=== PATIENT | female | born 1950 | race Caucasian/White ===

== ENCOUNTER 2017-08-16 07:11 | Outpatient (CLI) | payer MEDICARE, OTHER ==
[2017-08-16 11:18] LABS: BASOPHILS % (AUTO) 0.9 %; EOSINOPHILS # (AUTO) 0.1 10^3/uL (0.0-0.7); EOSINOPHILS % (AUTO) 2.5 %; HCT - HEMATOCRIT 40.7 % (37.0-47.0); HGB - HEMOGLOBIN 13.4 g/dL (12.0-16.0); LYMPHOCYTES # (AUTO) 1.7 10^3/uL (1.5-3.5); LYMPHOCYTES % (AUTO) 32.2 %; MEAN CORPUSCULAR VOLUME 93.9 fL (81.0-99.0); MEAN PLATELET VOLUME 9.3 fL (7.9-10.8); MONOCYTES # (AUTO) 0.6 10^3/uL (0.0-1.0); MONOCYTES % (AUTO) 10.5 %; NEUTROPHILS # (AUTO) 2.9 10^3/uL (1.5-6.6); NEUTROPHILS % (AUTO) 53.9 %; NUCLEATED RED BLOOD CELLS AUTO 0.1 /100WBC; RED BLOOD COUNT 4.34 10^6/uL (4.20-5.40); RED CELL DISTRIBUTION WIDTH 13.7 % (12.0-15.0); UNCORRECTED WHITE BLOOD COUNT 5.4 x10^3/uL; WHITE BLOOD COUNT 5.4 x10^3/uL (4.8-10.8)
[2017-08-16 11:42] LABS: ALBUMIN/GLOBULIN RATIO 1.2 (1.0-2.2); BILIRUBIN,TOTAL 0.6 mg/dL (0.2-1.0); BUN - BLOOD UREA NITROGEN 23 mg/dL (6-20); CALCIUM 9.3 mg/dL (8.5-10.3); CARBON DIOXIDE - CO2 27 mmol/L (21-32); CHLORIDE 100 mmol/L (101-111); CHOLESTEROL 251 mg/dL; CREATININE 1.1 mg/dL (0.4-1.0); GFR - MDRD 49 (>89); GLUCOSE 88 mg/dL (70-100); HDL CHOLESTEROL 84 mg/dL; LDL/HDL RATIO 1.8 (<4.4); POTASSIUM 3.7 mmol/L (3.5-5.0); SODIUM 136 mmol/L (135-145); TOTAL PROTEIN 7.6 g/dL (6.7-8.2); TRIGLYCERIDES 72 mg/dL; VLDL CHOLESTEROL 14 mg/dL
== END 2017-08-16 07:12 | disposition home or self-care (01) ==
LOC: LAB.F 07:11
PROVIDERS: ATTEND Physician Assistant Medical
DX: M81.0 Age-related osteoporosis without current pathological fracture (principal); E78.2 Mixed hyperlipidemia; Z79.899 Other long term (current) drug therapy; Z11.59 Encounter for screening for other viral diseases; N18.9 Chronic kidney disease, unspecified; E04.2 Nontoxic multinodular goiter
CPT/HCPCS: 36415; 80053; 80061; 82306; 84443; 85025; 86803

== ENCOUNTER 2017-09-05 12:47 | Outpatient (CLI) | payer MEDICARE, OTHER ==
--- NOTE | 2017-09-06 17:01 | Mammography Report ---
DIGITAL SCREENING MAMMOGRAM: 09/05/2017 CLINICAL INDICATION: A 66-year-old nulliparous patient for screening. COMPARISON: 07/2016, 05/2015, 04/2014, 04/2013, 03/2012, 10/2010. TECHNIQUE: Routine CC and MLO projections were obtained of the breasts. The breasts demonstrate heterogeneously dense fibroglandular parenchyma bilaterally. Punctate, typic ally benign calcifications are present. No suspicious masses, clustered microcalcifications, or alda ons of architectural distortion are identified. IMPRESSION: BENIGN FINDINGS. RECOMMENDATION: ROUTINE ANNUAL SCREENING UNLESS OTHERWISE CLINICALLY INDICATED. BIRADS CATEGORY: 2, BENIGN FINDINGS. STANDARD QUALIFYING STATEMENTS 1. This examination was reviewed with the aid of Computed-Aided Detection (CAD). 2. A negative or benign imaging report should not delay biopsy if clinically suspicious findings are present. Consider surgical consultation if warranted. More than 5% of cancers are not identified b y imaging. 3. Dense breasts may obscure an underlying neoplasm. :9 JOB #: [id number] EXT JOB #:[id number]
== END 2017-09-05 12:48 | disposition home or self-care (01) ==
LOC: DI 12:47
PROVIDERS: ATTEND Physician Assistant Medical
DX: Z12.31 Encounter for screening mammogram for malignant neoplasm of breast (principal)
CPT/HCPCS: 77067

== ENCOUNTER 2017-09-05 12:48 | Outpatient (CLI) | payer MEDICARE, OTHER ==
--- NOTE | 2017-09-05 18:15 | Ultrasound Report ---
THYROID ULTRASOUND: 09/05/2017 CLINICAL INDICATION: Multinodular goiter. COMPARISON: 06/22/2015 TECHNIQUE: Real-time scanning was performed with off premise service representative static images obtained. The right lobe measures 6.0 x 2.0 x 1.9 cm, and the left lobe measures 5.4 x 2.5 x 2.0 cm. The isthm us measures 4 mm. Both lobes demonstrate diffuse heterogeneity of echotexture. No suspicious solid lesion is appreciated. IMPRESSION: STABLE MULTINODULAR GOITER. NO SIGNIFICANT INTERVAL CHANGE. JOB #: [id number] EXT JOB #:[id number]
== END 2017-09-05 12:49 | disposition home or self-care (01) ==
LOC: DI 12:48
PROVIDERS: ATTEND Physician Assistant Medical
DX: E04.2 Nontoxic multinodular goiter (principal)
CPT/HCPCS: 76536

== ENCOUNTER 2018-08-27 07:10 | Outpatient (CLI) | payer MEDICARE, OTHER ==
[2018-08-27 11:53] LABS: BASOPHILS % (AUTO) 1.1 %; EOSINOPHILS # (AUTO) 0.1 10^3/uL (0.0-0.7); EOSINOPHILS % (AUTO) 2.8 %; HGB - HEMOGLOBIN 13.2 g/dL (12.0-16.0); LYMPHOCYTES # (AUTO) 1.4 10^3/uL (1.5-3.5); LYMPHOCYTES % (AUTO) 32.9 %; MEAN CORPUSCULAR HEMOGLOBIN 31.7 pg (27.0-31.0); MEAN CORPUSCULAR HGB CONC 33.7 g/dL (32.0-36.0); MEAN CORPUSCULAR VOLUME 94.1 fL (81.0-99.0); MEAN PLATELET VOLUME 9.7 fL (7.9-10.8); MONOCYTES # (AUTO) 0.5 10^3/uL (0.0-1.0); MONOCYTES % (AUTO) 11.5 %; NEUTROPHILS # (AUTO) 2.2 10^3/uL (1.5-6.6); NEUTROPHILS % (AUTO) 51.7 %; PLT - PLATELET COUNT 207 10^3/uL (130-450); RED BLOOD COUNT 4.18 10^6/uL (4.20-5.40); RED CELL DISTRIBUTION WIDTH 14.1 % (12.0-15.0); WHITE BLOOD COUNT 4.3 x10^3/uL (4.8-10.8)
[2018-08-27 12:06] LABS: ALBUMIN 4.1 g/dL (3.2-5.5); ALBUMIN/GLOBULIN RATIO 1.2 (1.0-2.2); ALKALINE PHOSPHATASE 31 IU/L (42-121); ALT ALANINE AMINOTRANSFERASE 19 IU/L (10-60); AST ASPARTATE AMINOTRANSFERASE 25 IU/L (10-42); BILIRUBIN,TOTAL 0.9 mg/dL (0.2-1.0); BUN - BLOOD UREA NITROGEN 22 mg/dL (6-20); CALCIUM 9.3 mg/dL (8.5-10.3); CARBON DIOXIDE - CO2 27 mmol/L (21-32); CHLORIDE 103 mmol/L (101-111); CHOL/HDL RATIO 2.6 (<4.4); CHOLESTEROL 226 mg/dL; GFR - MDRD 55 (>89); GLUCOSE 90 mg/dL (70-100); HDL CHOLESTEROL 88 mg/dL; LDL CHOLESTEROL,CALCULATED 128 mg/dL; LDL/HDL RATIO 1.5 (<4.4); SODIUM 139 mmol/L (135-145); TOTAL PROTEIN 7.6 g/dL (6.7-8.2); VLDL CHOLESTEROL 10 mg/dL
== END 2018-08-27 07:11 | disposition home or self-care (01) ==
LOC: LAB.F 07:10
PROVIDERS: ATTEND Physician Assistant Medical
DX: M81.0 Age-related osteoporosis without current pathological fracture (principal); N18.9 Chronic kidney disease, unspecified; E04.2 Nontoxic multinodular goiter; E78.2 Mixed hyperlipidemia; Z79.899 Other long term (current) drug therapy
CPT/HCPCS: 36415; 80053; 80061; 82306; 83721; 84443; 85025

== ENCOUNTER 2018-10-31 08:17 | Outpatient (CLI) | payer MEDICARE, OTHER ==
--- NOTE | 2018-10-31 09:59 | Ultrasound Report ---
Reason: OSTEOPOROSIS, POSTMENOPAUSAL, CKD STAGE 3 Procedure Date: 10/31/2018 Accession Number: [id number] / [id number] Procedure: US - Retroperitoneal CPT Code: FULL RESULT: EXAM: RENAL ULTRASOUND EXAM DATE: 10/31/2018 08:42 AM. CLINICAL HISTORY: Osteoporosis, postmenopausal, chronic kidney disease stage 3. COMPARISON: None. TECHNIQUE: Real-time scanning was performed with static images obtained. FINDINGS: Right Kidney: 10.8 cm. Normal echotexture with no stones, contour-deforming masses, or hydronephrosis. Left Kidney: 10.7 cm. Normal echotexture with no stones, contour-deforming masses, or hydronephrosis. Bladder: Bilateral jets seen. The prevoid bladder volume was 567 cc. The postvoid bladder volume was 37 cc. Other: None. IMPRESSION: No evidence of obstruction. Subjectively, echogenicity and thinning of the renal cortex is less pronounced than expected for advanced medical renal disease. RADIA
--- NOTE | 2018-11-01 08:16 | DEXA Report ---
Reason: OSTEOPOROSIS, POSTMENOPAUSAL, CKD STAGE 3 Procedure Date: 10/31/2018 Accession Number: [id number] / [id number] Procedure: DEX - Dexa Spine and/or Hip CPT Code: FULL RESULT: EXAM: Dexa Spine and/or Hip DATE: 10/31/2018 9:33 AM CLINICAL HISTORY: OSTEOPOROSIS, POSTMENOPAUSAL, CKD STAGE 3 TECHNIQUE: Dual energy x-ray absorptiometry (DXA) was performed on a [employer] System. Regions measured are the AP Spine, femoral neck, and if needed forearm. COMPARISON: 11/14/2016. In accordance with the International Society for Clinical Densitometry (ISCD) guidelines, data from previous exams may be reanalyzed using current recommendations and techniques. This is done to allow a more accurate basis for comparison with the current study. FINDINGS: The data for the lumbar spine is as follows: BMD (g/cm/cm) T-SCORE Z-SCORE REGION L1 0.720 -3.4 -1.5 L2 0.782 -3.5 -1.6 L3 0.852 -2.9 -1.0 L4 0.941 -2.2 -0.2 TOTAL 0.828 -2.9 -1.0 NOTE: All evaluable vertebrae are used for classification The data for the hip is as follows: BMD (g/cm/cm) T-SCORE Z-SCORE REGION Neck 0.775 -1.9 0.0 TOTAL 0.756 -2.0 -0.4 NOTE: The femoral neck or total proximal femur, whichever is lowest, is used for classification. DXA RESULTS SUMMARY: Spine SCAN DATE AGE BMD CHANGE VS CHANGE VS PREVIOUS PREVIOUS % 10[age]31/2018 [age] 0.859 -0.043* -4.8* 11/14/2016 [age] 0[age]902 * Denotes significant change at the 95% confidence level. Denotes dissimilar scan types or analysis methods. DXA RESULTS SUMMARY: Hip SCAN DATE AGE BMD CHANGE VS CHANGE VS PREVIOUS PREVIOUS % 10[age]31/2018 67.8 0.756 -0.061* -7.5* 11/14/2016 65.9 0.817 * Denotes significant change at the 95% confidence level. Denotes dissimilar scan types or analysis methods. IMPRESSION: THE WHO CLASSIFICATION BASED ON THE INTERNATIONAL REFERENCE STANDARD IS OSTEOPOROSIS. THE FRACTURE RISK IS HIGH. RECOMMENDATION: Patients with diagnosis of osteoporosis or osteopenia should have regular bone mineral density assessment. For those eligible for Medicare, routine testing is allowed once every 2 years. Testing frequency can be increased for patients who have rapidly progressing disease or for those who are receiving medical therapy to restore bone mass. COMMENT: World Health Organization (WHO) definitions for osteoporosis and osteopenia: NORMAL BMD: T-score at -1.0 or higher, fracture risk is low OSTEOPENIA BMD: T-score between -1.0 and -2.5, fracture risk is increased. OSTEOPOROSIS BMD: T-score at -2.5 or lower, fracture risk is high. National Osteoporosis Foundation recommends: 1. Obtain adequate dietary calcium (at least 1200 mg per day) and vitamin D (400-800 international units per day). 2. Participate, as appropriate, in regular weightbearing and muscle-strengthening exercise. 3. Avoid tobacco use and reduce alcohol and caffeine intake. 4. For more detailed information see the website at www.NOF.org.
== END 2018-10-31 08:18 | disposition home or self-care (01) ==
LOC: DI 08:17
PROVIDERS: ATTEND Physician Assistant Medical
DX: M81.0 Age-related osteoporosis without current pathological fracture (principal); Z78.0 Asymptomatic menopausal state; N18.3 Chronic kidney disease, stage 3 (moderate)
CPT/HCPCS: 76770; 77080

== ENCOUNTER 2018-10-31 09:31 | Outpatient (CLI) | payer MEDICARE, OTHER ==
--- NOTE | 2018-11-01 09:46 | Mammography Report ---
Reason: SCREENING MAMMO Procedure Date: 10/31/2018 Accession Number: [id number] / [id number] Procedure: MELANI - Screening Mammo w/Isaías CPT Code: FULL RESULT: EXAM: Screening Mammo w/Isaías DATE: 10/31/2018 9:44 AM CLINICAL HISTORY: Screening encounter. History of nulliparity. TECHNIQUE: Bilateral CC and MLO views were obtained. COMPARISON: 09/05/2017 through 05/21/2014. FINDINGS: The breasts demonstrate heterogeneously dense fibroglandular parenchyma bilaterally. No suspicious masses, clustered microcalcifications, or regions of architectural distortion are identified. IMPRESSION: Negative examination RECOMMENDATION: Routine annual screening unless otherwise clinically indicated. BIRADS CATEGORY 1: Negative STANDARD QUALIFYING STATEMENTS: 1. This examination was not reviewed with the aid of Computer-Aided Detection (CAD). 2. A negative or benign imaging report should not preclude biopsy if clinically suspicious findings are present. 3. Dense breasts may obscure an underlying neoplasm. 4. This examination was reviewed with the aid of 3D breast imaging (tomosynthesis).
== END 2018-10-31 09:32 | disposition home or self-care (01) ==
LOC: DI 09:31
PROVIDERS: ATTEND Physician Assistant Medical
DX: Z12.31 Encounter for screening mammogram for malignant neoplasm of breast (principal)
CPT/HCPCS: 77063; 77067

== ENCOUNTER 2018-11-14 15:17 | Outpatient (CLI) | payer MEDICARE, OTHER ==
[2018-11-14 18:23] LABS: BILIRUBIN,URINE NEGATIVE (NEGATIVE); GLUCOSE, URINE (UA) NEGATIVE (NEGATIVE); KETONES,URINE (UA) NEGATIVE (NEGATIVE); LEUKOCYTE ESTERASE, URINE NEGATIVE (NEGATIVE); NITRITE,URINE NEGATIVE (NEGATIVE); OCCULT BLOOD,URINE TRACE-INTA (NEGATIVE); PROTEIN,URINE NEGATIVE (NEGATIVE); UROBILINOGEN,URINE 0.2 (NORMAL) E.U./dL (NORMAL)
[2018-11-14 18:27] LABS: CLARITY,URINE CLEAR (CLEAR)
== END 2018-11-14 15:18 | disposition home or self-care (01) ==
LOC: LAB.F 15:17
PROVIDERS: ATTEND Physician Assistant Medical
DX: N18.3 Chronic kidney disease, stage 3 (moderate) (principal)
CPT/HCPCS: 81001; 81003; 87086

== ENCOUNTER 2019-01-03 07:12 | Outpatient (CLI) | payer MEDICARE, OTHER ==
[2019-01-03 12:14] LABS: CREATININE 0.9 mg/dL (0.4-1.0)
[2019-01-03 12:32] LABS: BILIRUBIN,URINE NEGATIVE (NEGATIVE); GLUCOSE, URINE (UA) NEGATIVE (NEGATIVE); KETONES,URINE (UA) NEGATIVE (NEGATIVE); LEUKOCYTE ESTERASE, URINE NEGATIVE (NEGATIVE); NITRITE,URINE NEGATIVE (NEGATIVE); OCCULT BLOOD,URINE NEGATIVE (NEGATIVE); PH,URINE 6.5 PH (5.0-7.5); PROTEIN,URINE NEGATIVE (NEGATIVE); UROBILINOGEN,URINE 0.2 (NORMAL) E.U./dL (NORMAL)
[2019-01-03 13:07] LABS: CLARITY,URINE CLEAR (CLEAR)
== END 2019-01-03 07:13 | disposition home or self-care (01) ==
LOC: LAB.F 07:12
PROVIDERS: ATTEND Internal Medicine Endocrinology, Diabetes & Metabolism
DX: M81.0 Age-related osteoporosis without current pathological fracture (principal); N18.3 Chronic kidney disease, stage 3 (moderate)
CPT/HCPCS: 36415; 81001; 81003; 81599; 82523; 82565; 83970; 87086

== ENCOUNTER 2020-11-13 07:03 | Outpatient (CLI) | payer MEDICARE, OTHER ==
[2020-11-13 15:55] LABS: BASOPHILS # (AUTO) 0.1 10^3/uL (0.0-0.1); EOSINOPHILS # (AUTO) 0.1 10^3/uL (0.0-0.7); EOSINOPHILS % (AUTO) 2.7 %; HGB - HEMOGLOBIN 13.2 g/dL (12.0-16.0); LYMPHOCYTES # (AUTO) 1.5 10^3/uL (1.5-3.5); LYMPHOCYTES % (AUTO) 31.9 %; MEAN CORPUSCULAR HEMOGLOBIN 30.3 pg (27.0-31.0); MEAN CORPUSCULAR HGB CONC 31.1 g/dL (32.0-36.0); MEAN CORPUSCULAR VOLUME 97.5 fL (81.0-99.0); MEAN PLATELET VOLUME 11.2 fL (7.9-10.8); MONOCYTES # (AUTO) 0.5 10^3/uL (0.0-1.0); MONOCYTES % (AUTO) 10.7 %; NEUTROPHILS # (AUTO) 2.6 10^3/uL (1.5-6.6); NEUTROPHILS % (AUTO) 53.5 %; PLT - PLATELET COUNT 262 10^3/uL (130-450); RED BLOOD COUNT 4.36 10^6/uL (4.20-5.40); RED CELL DISTRIBUTION WIDTH 14.2 % (12.0-15.0); WHITE BLOOD COUNT 4.8 x10^3/uL (4.8-10.8)
[2020-11-13 16:31] LABS: ALBUMIN 4.3 g/dL (3.2-5.5); ALBUMIN/GLOBULIN RATIO 1.2 (1.0-2.2); ALKALINE PHOSPHATASE 32 IU/L (42-121); ALT ALANINE AMINOTRANSFERASE 24 IU/L (10-60); AST ASPARTATE AMINOTRANSFERASE 25 IU/L (10-42); BILIRUBIN,TOTAL 0.7 mg/dL (0.2-1.0); BUN - BLOOD UREA NITROGEN 25 mg/dL (6-20); CALCIUM 9.7 mg/dL (8.5-10.3); CARBON DIOXIDE - CO2 26 mmol/L (21-32); CHLORIDE 104 mmol/L (101-111); CHOL/HDL RATIO 3.1 (<4.4); CHOLESTEROL 264 mg/dL; CREATININE 1.1 mg/dL (0.4-1.0); GLUCOSE 98 mg/dL (70-100); HDL CHOLESTEROL 84 mg/dL; LDL CHOLESTEROL,CALCULATED 163 mg/dL; LDL/HDL RATIO 1.9 (<4.4); SODIUM 139 mmol/L (135-145); TOTAL PROTEIN 7.8 g/dL (6.7-8.2); VLDL CHOLESTEROL 17 mg/dL
== END 2020-11-13 07:04 | disposition home or self-care (01) ==
LOC: LAB.S 07:03
PROVIDERS: ATTEND Nurse Practitioner
DX: Z00.00 Encounter for general adult medical examination without abnormal findings (principal); Z79.899 Other long term (current) drug therapy; E78.2 Mixed hyperlipidemia; E04.2 Nontoxic multinodular goiter; M81.0 Age-related osteoporosis without current pathological fracture; N18.30 Chronic kidney disease, stage 3 unspecified
CPT/HCPCS: 36415; 80053; 80061; 82306; 83721; 84443; 85025

== ENCOUNTER 2021-01-18 12:56 | Outpatient (CLI) | payer MEDICARE, OTHER ==
--- NOTE | 2021-01-18 15:33 | DEXA Report ---
PROCEDURE: Dexa Spine and/or Hip INDICATIONS: POST MENOPAUSAL TECHNIQUE: Dual energy x-ray absorptiometry (DXA) was performed on a [employer]erg[employer] System. Regions measur ed are the AP Spine, femoral neck, and if needed forearm. COMPARISON: None. FINDINGS: Lumbar Spine: Bone Mineral Density 0.925 g/cm/cm,T score -2.3 Left Femoral Neck: Bone Mineral Density 0.835 g/cm/cm, T score -1.4, (T score greater or equal to -1.0: NORMAL) (T score from -1.1 to -2.4: OSTEOPENIA) (T score less than or equal to -2.5 to: OSTEOPOROSIS) Impression: Osteopenia. Patients with diagnosis of osteoporosis or osteopenia should have regular bone mineral density assess ment. For those eligible for Medicare, routine testing is allowed once every 2 years. Testing frequ ency can be increased for patients who have rapidly progressing disease or for those who are receivin g medical therapy to restore bone mass. Reviewed by: Deandre Wyatt MD on 01/18/2021 3:32 PM PST Approved by: Deandre Wyatt MD on 01/18/2021 3:32 PM PST Station ID: [id number]
== END 2021-01-18 12:57 | disposition home or self-care (01) ==
LOC: DI 12:56
PROVIDERS: ATTEND Nurse Practitioner
DX: M85.89 Other specified disorders of bone density and structure, multiple sites (principal); Z78.0 Asymptomatic menopausal state

== ENCOUNTER 2021-01-18 12:57 | Outpatient (CLI) | payer MEDICARE, OTHER ==
--- NOTE | 2021-01-19 12:29 | Mammography Report ---
BILATERAL DIGITAL SCREENING MAMMOGRAM 3D/2D: 01/18/2021 CLINICAL: Routine screening. Comparison is made to exams dated: 10/31/2018 mammogram, 09/05/2017 mammogram, 08/22/2016 mammogram, mammogram, and 05/21/2014 mammogram - [facility]. The tissue of both breas ts is predominantly fatty. No significant masses, calcifications, or other findings are seen in either breast. There has been no significant interval change. IMPRESSION: NEGATIVE There is no mammographic evidence of malignancy. A 1 year screening mammogram is recommended. This exam was interpreted at Station ID: [id number]. NOTE: For mammograms, a report in lay terms will be sent to the patient. Approximately 15% of breast malignancies will not be visualized mammographically. In the management of a palpable breast mass, a negative mammogram must not discourage biopsy of a clinically suspicious lesion. Electronically Signed By: Emmanuel Duvall M.D., jr/penrad:01/18/2021 14:59:52 ACR BI-RADS Category 1: Negative 3341F PARENCHYMAL PATTERN: (F) - The breast(s) demonstrate(s) diffuse fatty replacement. BI-RADS CATEGORY: (1) - 1 RECOMMENDATION: (ANNUAL) - Recommend routine annual screening mammography. [id number] 1 year screening LATERALITY: (B)
== END 2021-01-18 12:58 | disposition home or self-care (01) ==
LOC: DI 12:57
PROVIDERS: ATTEND Nurse Practitioner
DX: Z12.31 Encounter for screening mammogram for malignant neoplasm of breast (principal)

== ENCOUNTER 2021-09-22 16:16 | Outpatient (CLI) | payer MEDICARE, OTHER ==
--- NOTE | 2021-09-22 16:43 | XRAY Report ---
PROCEDURE: Chest 2 View X-Ray INDICATIONS: HEMOPTYSIS TECHNIQUE: 2 view(s) of the chest. COMPARISON: None. FINDINGS: SUPPORT DEVICES: None. LUNGS/PLEURA: A 4.6 cm mass projects over the medial aspect of the right upper lung zone. The remaini ng lung zones well aerated. No pleural effusion or space-occupying pneumothorax. MEDIASTINUM: The cardiomediastinal silhouette is within normal limits. BONES/SOFT TISSUES: No acute abnormality. IMPRESSION: 1.Mass projecting in the medial aspect of the right upper lung zone. Differential considerations incl ude aneurysm versus neoplasm. Consider CT imaging with contrast for further evaluation. Reviewed by: Sharif Collado MD on 09/22/2021 4:42 PM PDT Approved by: Sharif Collado MD on 09/22/2021 4:42 PM PDT Station ID: [id number]
== END 2021-09-22 23:59 ==
LOC: DI.S 16:16
PROVIDERS: ATTEND Emergency Medicine
DX: R04.2 Hemoptysis (principal); R91.8 Other nonspecific abnormal finding of lung field

== ENCOUNTER 2021-11-10 09:45 | Outpatient (CLI) | payer MEDICARE, OTHER ==
--- NOTE | 2021-11-10 14:40 | CONSULTATION NOTE ---
Palliative Care Consultation - Referral Referring Provider: Cat Griggs PA-C Time of Visit: 0945 60 minutes Referral setting: [facility] [place] Reason: Pain of neoplastic origin/Met Lung CA to liver and bones/Grief Reaction - Information Sources Records reviewed: Previous records reviewed History/Review of Systems obtained from: Patient, Family ( Beck) Exam limitations: No limitations - History of Present Illness Brief History of Present Illness: This is a 70-year-old woman who has been fairly healthy most of her life, presented to the walk-in clinic on 09/22/2020 when feeling fullness in her chest and small-volume hemoptysis. She reports that this had also happened in May 2021, but had since resolved. She did have a work-up with a chest x-ray that followed and revealed a mass in the right apex of the lung concerning for cancer, showing a 4.6 cm mass projecting over the medial aspect of the right u pper lung zone. She subsequently has done a PET scan, that showed widely metastatic disease with bone and liver mets. 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 She has had escalating pain, that radiates up and down her spine, and is a thick band around her back causing spasms into her lateral musculature. She does have some left hip pain, as well as radiating up into her right scapular area. She has only been using 10 mg of oxycodone every 6 hours, with little relief, and having it where off within 2 to 3 hours. She has had some constipation, and has had increased feeling of belching. She has severe pain with any kind of coughing or sneezing, and is exhausted from the worsening pain and has limited her functional status fairly quickly over this last few weeks. Patient has met with oncology, she does understand the seriousness of her illness, that treatment would be only palliative in nature. He has offered her carboplatinum/etoposide with atezolzumab. She is still reeling from the information, but her most significant issue right now is her escalating pain. She is feeling overwhelmed, will be receiving a restaging CT of the chest and abdomen and pelvis prior to starting treatment. Palliative care meeting with patient for her acute pain management, introduction of palliative care services and psychosocial support. Medical/Surgical History - Past Medical History Cardiovascular: reports: None Respiratory: reports: Shortness of breath Neuro: None Endocrine/Autoimmune: reports: None GI: reports: Chronic constipation SCHOOL PSYCHOLOGY SPECIALIST: reports: None : reports: None HEENT: reports: Chronic vision loss Psych: reports: None Musculoskeletal: reports: None Derm: reports: Other (hx of basal cell CA) MRSA Hx?: No - Past Surgical History General: reports: Other (liver bx) Derm: reports: Skin cancer surgery - Substance History Use: Uses substance without health or social issues: NONE, Alcohol (moderate use) Social History - Living Situation Living arrangement: At home Living Situation: With spouse/s.o. Support System: Patient is , they do not have any children. 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 She does not have any family currently alive, and minimal community support. She does have friends but they are on the other "side". She is always taking care of herself, with hiking and staying in shape, is somewhat perplexed how she can be so seriously ill. Family History - Family History Family History: Mother: Cancer (lung cancer 58), Father: , CAD (heartfailure at 89) Medications/Allergies - Medications Home Medications: Ambulatory Orders Medication Instructions Recorded Confirmed Morphine ER [Morphine Sulfate ER] 15 mg PO TID MDD start BID x 1 day 11/10/21 11/10/21 Naloxone HCl [Narcan] 1 spray B[place]ON DAILY PRN 11/10/21 11/10/21 Ondansetron HCl [Zofran] 4 mg PO Q6HR PRN 11/10/21 11/10/21 Oxycodone HCl 10 mg PO Q3HR PRN 11/10/21 11/10/21 Senna [Senokot] 2 tab PO BID MDD titrate to effect 11/10/21 11/10/21 dexAMETHasone [Decadron] 2 mg PO .4 MG AM 2 MG 1400 11/10/21 11/10/21 polyethylene glycoL 3350 [Miralax] 17 mg PO DAILY MDD bid 11/10/21 11/10/21 - Allergies Allergies/Adverse Reactions: Allergies Allergy/AdvReac Type Severity Reaction Status Date / Time Sulfa (Sulfonamide Allergy Unknown Verified 11/10/21 20:30 Antibiotics) Review of Systems - Constitutional Constitutional: reports: Fatigue, Weakness, Weight loss - Eyes Eyes: reports: Vision loss, Corrective lenses - Ears, Nose & Throat Ears, Nose & Throat: reports: Tinnitus, Other (taste changes) - Cardiovascular Cardiovascular: reports: Palpitations, Exertional dyspnea, Decr. exercise tolerance - Respiratory Respiratory: reports: Cough, Hemoptysis, SOB at rest, SOB with exertion - Gastrointestinal Gastrointestinal: reports: Constipation, Nausea, Bloating, Early satiety - Musculoskeletal Musculoskeletal: reports: Muscle pain, Back pain, Muscle aches, Stiffness, Limited range of motion, Muscle weakness - Integumentary Integumentary: reports: Dryness - Neurological Neurological: reports: General weakness, Numbness - Psychiatric Psychiatric: reports: Anxiety - All Other Systems All Other Systems: reports: Reviewed and negative Physical Exam - Physical Exam General Appearance: positive: No acute distress, Alert Eyes Bilateral: positive: Normal inspection, No scleral icterus ENT: positive: No signs of dehydration Neck: positive: Trachea midline Skin: positive: Pallor Extremities: negative: Full ROM Neurologic/Psychiatric: positive: Oriented x3, Depressed mood/affect, Flat a ffect Palliative Care - POLST Patient has POLST: No Pain: Pain worsening, Location (see HPI), Severity (10 with meds on board) Tiredness/Fatigue: Moderate (4-6) Drowsiness/Sedation: Moderate (4-6) Nausea: Mild (1-3) Anorexia: Mild (1-3) Dyspnea: Severe (7-10) Depression: Mild (1-3) Anxiety: Mild (1-3) Feelings of wellbeing/Perceived Quality of Life: Poor, Worsening Sleep: Variable sleep pattern (difficulty with pain to get comfortable) Constipation: Yes, Opoid induced, Unmanaged Performance Status: Patient had been a hiker, able to walk 10 miles, has had rapidly declining functional status. Cannot even tolerate doing the dishes at this point in time, standing exacerbates her pain. Needing frequent repositioning. She is able to manage her ADLs, though does appear quite uncomfortable when ambulating or getting from sitting to standing. - Palliative Care Discussion: Patient is just learned of the seriousness of her illness, is weighing benefits and burdens of moving forward. Though does feel like he needs to "give it a try". We did discuss in the context of palliative treatment, can weigh benefits and burdens of each treatment cycle and impact on quality of life as well as where her disease is. Patient's priority right now is taking on top of her pain, she is quite miserable and feeling overwhelmed. In discussion I am concerned as far as support, they do not have family and are limited as far as they are community at this point in time. She has been well most of her life, and navigating particularly in the context of this more complex time with Covid, the healthcare system has been difficult and frustrating. Did not introduce advanced care planning yet, though did discuss we would be having conversations in the future about the bigger picture plan, and decisions to be made along the way. 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 She does have severe uncontrolled pain at this point, and is pending to start therapy as soon as possible. Palliative care meeting patient for pain management, will continue to develop rapport and focus on quality of life issues and anticipatory guidance. Recommendations/Counseling Done: 1. Pain of neoplastic origin. This is multifactorial including visceral, bone pain, and mass-effect in her chest. We will go ahead and initiate dexamethasone 4 mg a.m. and 2 mg 1400, has been using oxycodone 10 mg 4 times a day with very little control, will go ahead and initiate extended release morphine 15 mg twice daily x1 day then increase to 3 times daily. Patient has been educated on use of oxycodone 10 mg every 3 hours for breakthrough pain. Provided some ondansetron in case patient has increased nausea, already has some belching and some abdominal discomfort. Prescription for Narcan provided as well as rationale. 2. Constipation. Patient with hard stools, has had chronic constipation. We will go ahead and initiate MiraLAX 17 g daily, and senna 2 tabs twice daily. Counseling provided regarding titration of "motion" and "push" for MiraLAX and senna adjustments. Goal is to have a soft regular BM daily. 3. Stage IV lung cancer. Patient with Multiple appropriate questions. We did review she will be getting chemotherapy education, she is worried about losing her hair. We will give her resources for wigs, depending on likelihood of this. Patient this point time is planning to proceed with treatment, she will receive a restaging CT chest and abdomen of the pelvis prior to initiation. Counseling provided regarding palliative nature, and ability to weigh benefits and burdens with each treatment cycle in the context of her definition of quality of life. Patient may benefit from radiation therapy for bone pain, if no improvement with treatment. 4. Anxiety. This is appropriate given her diagnosis and previous level of health and functioning. Counseling provided to normalize patient's current grief and loss process and need to have time to learn a new language, and rhythm for pending treatment plan. 5. Advanced care planning. Introduced role of palliative care for providing support for navigating current journey, particularly in the context of treatment is palliative in nature. We will continue to introduce advanced care planning documents as well as defining patient's goals of care as things develop.Goal will be to see patient weekly until symptoms controlled. 60 minutes with review of labs, scans, oncology notes, [id number] for instruction on pain and symptom management, role of palliative care, coordination of care with oncology team will provide ongoing phone calls to help with medication/pain management
== END 2021-11-10 09:46 | disposition home or self-care (01) ==
LOC: PC 09:45
PROVIDERS: ATTEND Nurse Practitioner Adult Health
DX: Z51.5 Encounter for palliative care (principal); G89.3 Neoplasm related pain (acute) (chronic); Z80.1 Family history of malignant neoplasm of trachea, bronchus and lung; C7A.8 Other malignant neuroendocrine tumors; C7B.8 Other secondary neuroendocrine tumors; R53.1 Weakness; R53.83 Other fatigue; R06.02 Shortness of breath; K59.03 Drug induced constipation; T40.2X5A Adverse effect of other opioids, initial encounter; F43.22 Adjustment disorder with anxiety; Z79.891 Long term (current) use of opiate analgesic; Z60.8 Other problems related to social environment
CPT/HCPCS: 99205

== ENCOUNTER 2021-11-16 12:00 | Outpatient (CLI) | payer MEDICARE, OTHER ==
--- NOTE | 2021-11-16 15:34 | CONSULTATION NOTE ---
Palliative Care Follow Up - Referral Referring Provider: Dr. Derrell Griffin Time of Visit: 12:00 75 minutes Referral setting: Home Referral Reason: Pain of neoplastic origin/Constipation/Muscle Weakness/Met Lung CA - Information Sources Records reviewed: Previous records reviewed History/Review of Systems obtained from: Patient, Family ( Beck) Exam limitations: No limitations, Clinical condition (feeling poorly related to escalating pain) - History of Present Illness Update Brief HPI Update: This is a 70-year-old woman who has been fairly healthy most of her life, presented to the walk-in clinic on 08/2020 with a feeling of fullness in her chest and small-volume hemoptysis. 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 Unfortunately she is continued to have escalating pain that radiates up and down her spine, has a thick band around her back that radiates over to the left, with spasms, we have been asked the palliative care team, escalating her pain medications with some improvement but remains of concern. She is currently at time-released morphine 30 mg a.m., 30 mg late afternoon, and 45 mg at bedtime. She is still needing oxycodone 10 mg every 3 hours, has not had much relief with this, as well as now having a severe spasmatic component, declining functional status with needing to use walker. Difficulty from getting from sitting to standing, and the most effective intervention at this point in time is actually been the escalated to dexamethasone, 4 mg twice daily, is noticed most relief when she takes this. Of note and concern, she has had some urinary incontinence, increased difficulty walking, severe pain with any kind of coughing or sneezing, and is getting quite exhausted. She has been able to sleep with the medications, and has initiated some tizanidine 4 mg at bedtime. She did have some baseline CT scans done prior to chemotherapy on 11/12, with but has shown again innumerable metastatic lesions of the lesion of the liver as well as moderate stool burden through her colon, but her compression fracture of T8 with moderate anterior height loss is been new since her recent x-ray and a compression fracture L1 likely pathologic fractures there are 2 lucencies seen in the right aspect of the vertebral body and 2 lucencies in the left aspect of T3 vertebral body. Patient also noted on 11/[address], with large right pleural effusion. There are several enhancing lung masses, the largest near the right lung apex 5.6 in AP diameter, posterior mediastinal region 5.4 cm. Others range in size from 2.4-4.8 and mostly pleural-based. She does have complete atelectasis of the right middle lobe, which may be adding to her discomfort, left lung is fully aerated and no dominant masses. Patient's pain has been escalating fairly rapidly, as well as her escalation of her pain medications, including addition of her dexamethasone. She has met with oncology and understands the seriousness of her illness, and that her treatment is can be palliative in nature. She will be starting carboplatinum/etoposide with atezolzumab, and was pending portacath placement tomorrow. Concern today regarding the escalation patient's pain, introduction of some neurologic symptoms with her urinary incontinence, worsening functional decline, and notable improvement with the dexamethasone raises suspicion of spinal cord compression. After discussion with oncology, radiation oncology most expeditious way of work-up will be sending her to [place] ED for MRI of her spine and evaluation by neurosurgery and radiation if indicated. Past Medical History: Patient with very little history other than chronic constipation, chronic vision loss, history of basal cell CA, and recent liver biopsy. Social History - Living Situation Living arrangement: At home Living Situation: With spouse/s.o. Support System: Patient lives at home with her Beck, they are and do not have any children. She has minimal community family/friends support. They are feeling overwhelmed at the rapid decline of her status. Medications/Allergies - Medications Home Medications: Ambulatory Orders Medication Instructions Recorded Confirmed Morphine ER [Morphine Sulfate ER] 30 mg PO .IN AM AND AFTERNOON MDD 11/10/21 11/16/21 may increase to 45 mg am Naloxone HCl Nasal [Narcan] 1 spray BENTON DAILY PRN 11/10/21 11/16/21 Ondansetron HCl [Zofran] 4 mg PO Q6HR PRN 11/10/21 11/16/21 Oxycodone HCl 10 mg PO Q3HR PRN 11/10/21 11/16/21 Senna [Senokot] 4 tab PO BID MDD titrate to effect 11/10/21 11/16/21 may add 3rd dexAMETHasone [Decadron] 2 mg PO .4MG BID 11/10/21 11/16/21 Morphine ER [Morphine Sulfate ER] 45 mg PO QPM 11/15/21 11/16/21 polyethylene glycoL 3350 [Miralax] 17 gm PO BID 11/15/21 11/16/21 tiZANidine [Zanaflex] 4 mg PO TID PRN 11/16/21 11/16/21 - Allergies Allergies/Adverse Reactions: Allergies Allergy/AdvReac Type Severity Reaction Status Date / Time Sulfa (Sulfonamide Allergy Unknown Verified 11/10/21 20:30 Antibiotics) Review of Systems - Constitutional Constitutional: reports: Fatigue, Weakness (worsening), Weight loss - Eyes Eyes: reports: Vision loss, Corrective lenses - Ears, Nose & Throat Ears, Nose & Throat: reports: Tinnitus, Dry mouth, Other (taste changes) - Cardiovascular Cardiovascular: reports: Palpitations, Exertional dyspnea, Decr. exercise tolerance - Respiratory Respiratory: reports: Cough, Hemoptysis, SOB at rest, SOB with exertion - Gastrointestinal Gastrointestinal: reports: Constipation (needing more aggressive bowel program; went a little today), Bloating, Early satiety - Genitourinary Genitourinary: reports: Incontinence (new symptom; worse in am) - Musculoskeletal Musculoskeletal: reports: Muscle pain, Back pain, Muscle aches, Stiffness, Limited range of motion, Muscle weakness, Assistive devices (needing walker for pain relief/offload and weakness) - Integumentary Integumentary: reports: Dryness - Neurological Neurological: reports: General weakness, Numbness, Abnormal gait - Psychiatric Psychiatric: reports: Anxiety - Endocrine Endocrine: reports: Intolerance to cold - All Other Systems All Other Systems: reports: Reviewed and negative Physical Exam - Physical Exam General Appearance: positive: Alert, Moderate distress (with escalating pain), Other (very pale/wilson) Eyes Bilateral: positive: Normal inspection, No scleral icterus Neck: positive: Trachea midline Respiratory: positive: No respiratory distress Skin: positive: Pallor Extremities: positive: No pedal edema. negative: Full ROM Neurologic/Psychiatric: positive: Oriented x3, Depressed mood/affect, Flat affect Palliative Care - POLST Patient has POLST: No Pain: Pain worsening, Pain improved (with medication see HPI) Tiredness/Fatigue: Severe (7-10) Drowsiness/Sedation: Moderate (4-6) Nausea: Mild (1-3) Anorexia: Moderate (4-6), Weight loss Dyspnea: Moderate (4-6) Depression: Moderate (4-6) Anxiety: Severe (7-10) Feelings of wellbeing/Perceived Quality of Life: Poor, Worsening Sleep: Sleep improved Constipation: Yes, Opoid induced, Intermittent constipation Performance Status: Patient with declining functional status, more dependent on walker. Difficulty from getting from sitting to standing, more uncomfortable with sitting. She is needing assistance with her ADLs, her is quite frail and with mobility issues as well. May benefit from a home visit to evaluate situation once current acute issues resolve - Palliative Care Discussion: Patient has been continue to feel overwhelmed, has had a series of escalating concerns with worsening pain, declining functional status, now has pending chemo as well as a port cath scheduled tomorrow. Concerns today, regarding patient's escalating pain, spinal involvement, possible spinal cord compression. Unfortunately will need to send to [place] for evaluation and rule out. 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 She has had escalating pain, mild relief from dexamethasone, concern with her escalating pain, declining functional status, urinary incontinence, for spinal cord compression. Patient has not started treatment yet, is pending Port-A-Cath placement and treatment. Given the acuteness of her current findings today, will be sent to [place] ED for rule out spinal cord compression. Palliative care continue to meet with patient for pain management, focus on quality of life issues and anticipatory guidance. Recommendations/Counseling Done: 1. Pain of neoplastic origin. This is multifactorial including visceral, bone pain, mass-effect of her chest as well as enlarging right pleural effusion. She has had some relief with escalation dexamethasone to 4 mg twice daily, have had to ask increase her extended release morphine fairly aggressively, currently taking 30 mg a.m. 30 mg late afternoon and 45 mg p.m., will increase this to 45 mg 3 times daily with a slow taper. She is using oxycodone 10 mg every 3 hours for breakthrough pain and has needed this fairly consistently still. Follow-up with radiation, to see if patient can get more immediate relief, will continue to follow after evaluation at [place] ED. 2. Constipation. Patient has long-term had chronic constipation, bowels finally cleaned out, currently on MiraLAX 1.5 capfuls, encouraged to use 1 capful twice daily, senna 4 tabs twice daily, instructed to add a third 4 tab scheduling if no BM after 48 hours, and 30 mils of milk of mag if no BM after 72 hours. Goal is to have a soft regular BM daily. 3. Stage IV lung cancer with bone/spinal mets, now noted compression fractures at T8 and L1. Concerns for spinal cord compression. Consult with oncology, radiation oncology and related to escalating concerns of rapid on increase of pain and aggressive nature of her cancer. We will send her to [place] ED, note written and records printed to be able to facilitate appointment. Patient is feeling overwhelmed to the ability to "tell her story". Very bloating past provided, and reviewed if patient does return home tonight, to follow through on her Port-A-Cath placement tomorrow. Hopefully will still be a candidate for radiation if not an acute admit. 4. Anxiety. This is appropriate acute issues today. We will go ahead and plan for follow-up as soon as patient is available. Her diagnosis and previous level of health and functioning. We will continue to provide support, will follow up as soon as possible and available. 5. Advanced care planning. Patient does need to have advanced care planning documents completed, unfortunately unable to address this but will plan to see patient as soon as she is available given her ED visit planned this evening. [address] scan, chart, appointment with patient to evaluate current pain regimen, titration, counseling provided regarding concerns for spinal cord compression, coordination of care with oncology, radiation oncology, and arrangements made for evaluation over [place] ED
== END 2021-11-16 12:01 | disposition home or self-care (01) ==
LOC: PC 12:00
PROVIDERS: ATTEND Nurse Practitioner Adult Health
DX: Z51.5 Encounter for palliative care (principal); G89.3 Neoplasm related pain (acute) (chronic); C7A.8 Other malignant neuroendocrine tumors; C7B.8 Other secondary neuroendocrine tumors; R32 Unspecified urinary incontinence; M62.81 Muscle weakness (generalized); R26.2 Difficulty in walking, not elsewhere classified; R53.83 Other fatigue; J90 Pleural effusion, not elsewhere classified; K59.03 Drug induced constipation; T40.2X5A Adverse effect of other opioids, initial encounter; M48.55XA Collapsed vertebra, not elsewhere classified, thoracolumbar region, initial encounter for fracture; Z74.09 Other reduced mobility; F41.9 Anxiety disorder, unspecified; K59.09 Other constipation; Z79.891 Long term (current) use of opiate analgesic; Z79.52 Long term (current) use of systemic steroids; Z60.8 Other problems related to social environment
CPT/HCPCS: 99350

== ENCOUNTER 2021-11-17 06:25 | Day surgery (SDC) | payer MEDICARE, OTHER ==
[2021-11-17] MEDS ORDERED: LACTATED RINGERS 1,000 ML IV ONE ×2 (07:26→08:45)
[2021-11-17] MEDS ORDERED: LIDOCAINE MPF 2%-EPI 1:200000 20 ML VIAL ONE (07:35)
[2021-11-17] MEDS ORDERED: BUPIVACAINE 0.5% PF 10 ML VIAL ONE (07:35)
--- NOTE | 2021-11-17 07:35 | ANESTHESIA ---
Pre-Anesthesia VS, & Labs - Diagnosis lung mass - Procedure placement of port Vital Signs: Temp Pulse Resp BP Pulse Ox 37.4 C 98 24 157/79 H 24 L 11/17/21 06:35 11/17/21 06:35 11/17/21 06:35 11/17/21 06:35 11/17/21 06:35 Height: 5 ft 9 in Weight (kg): 66 kg Body Mass Index: 21.4 BMI Classification: Healthy weight - NPO >8 hours - Is Patient ?: No Home Medications and Allergies Morphine ER [Morphine Sulfate ER] 30 mg PO .IN AM AND AFTERNOON MDD may increase to 45 mg am 11/10/21 Naloxone HCl Nasal [Narcan] 1 spray BENTON DAILY PRN 11/10/21 Ondansetron HCl [Zofran] 4 mg PO Q6HR PRN 11/10/21 Oxycodone HCl 10 mg PO Q3HR PRN 11/10/21 Senna [Senokot] 4 tab PO BID MDD titrate to effect may add 3rd 11/10/21 dexAMETHasone [Decadron] 4 mg PO .4MG BID 11/10/21 polyethylene glycoL 3350 [Miralax] 17 gm PO BID 11/15/21 Allergies/Adverse Reactions: Allergies Allergy/AdvReac Type Severity Reaction Status Date / Time Sulfa (Sulfonamide Allergy Unknown Verified 11/17/21 07:01 Antibiotics) Anes History & Medical History - Anesthetic History Family history of Anesthesia Complications: Denies Family history of Malignant Hyperthermia: Denies - Medical History Cardiovascular: reports: None Pulmonary: reports: Other (lung cancer) Gastrointestinal: reports: None Urinary: reports: None Neuro: reports: None Musculoskeletal: reports: Other (rib fractures) Endocrine/Autoimmune: reports: None Blood Disorders: reports: None Skin: reports: Other Smoking Status: Never smoker Psychosocial: reports: Alcohol (1 drink per day.) History of Cancer?: Yes - Surgical History General: reports: Colonoscopy, Other (liver bx) Dermatologic: reports: Skin cancer surgery Exam General: Alert, Oriented x3, Cooperative, No acute distress Dental: WNL Mouth Openin Fingerbreadth Neck Mobility: Normal Mallampati classification: I Thyromental Distance: 4-6 cm Mental/Cognitive Status: Alert/Oriented X3, Normal for patient Plan Anesthesia Type: General, Total IV Consent for Procedure(s) Verified and Reviewed: Yes Code Status: Attempt Resuscitation ASA classification: 3-Severe systemic disease Is this case an emergency?: No
--- NOTE | 2021-11-17 07:36 | HISTORY & PHYSICAL EXAMINATION ---
Chief Complaint - Chief Complaint Chief Complaint: lung cancer History of Present Illness - History Obtained From Records Reviewed: yes History obtained from: pt Exam Limitations: none - History of Present Illness HPI Comment/Other: Recent diagnosis of metastatic lung cancer. History - Past Medical History Cardiovascular: reports: None Respiratory: reports: Other Neuro: reports: None Endocrine/Autoimmune: reports: None GI: reports: None ASBESTOS COVERER: reports: None : reports: None HEENT: reports: Chronic vision loss Psych: reports: None Musculoskeletal: reports: Other Derm: reports: Other MRSA Hx?: No - Past Surgical History General: reports: Other (liver bx) Derm: reports: Skin cancer surgery - Family & Social History Family History: Mother: Cancer (lung cancer 58), Father: , CAD (heartfailure at 89) Living Situation: With spouse/s.o. - Substance History Use: Uses substance without health or social issues: NONE, Alcohol (moderate use) - POLST Patient has POLST: No Meds/Allgy - Home Medications Home Medications: Ambulatory Orders Medication Instructions Recorded Confirmed Morphine ER [Morphine Sulfate ER] 30 mg PO .IN AM AND AFTERNOON MDD 11/10/21 11/17/21 may increase to 45 mg am Naloxone HCl Nasal [Narcan] 1 spray [place]ENTON DAILY PRN 11/10/21 11/17/21 Ondansetron HCl [Zofran] 4 mg PO Q6HR PRN 11/10/21 11/17/21 Oxycodone HCl 10 mg PO Q3HR PRN 11/10/21 11/17/21 Senna [Senokot] 4 tab PO BID MDD titrate to effect 11/10/21 11/17/21 may add 3rd dexAMETHasone [Decadron] 4 mg PO .4MG BID 11/10/21 11/17/21 polyethylene glycoL 3350 [Miralax] 17 gm PO BID 11/15/21 11/17/21 Ondansetron HCl [Zofran] 4 mg PO Q6HR PRN #30 tab 11/16/21 11/17/21 - Allergies Allergies/Adverse Reactions: Allergies Allergy/AdvReac Type Severity Reaction Status Date / Time Sulfa (Sulfonamide Allergy Unknown Verified 11/17/21 07:01 Antibiotics) Review of Systems - Other Findings Other Findings: 10 pt ros as above otherwise unremarkable Exam - Vital Signs Reviewed Vital Signs: Yes Vital Signs: Vital Signs x48h Temp Pulse Resp BP Pulse Ox 11/17/21 06:35 37.4 C 98 24 157/79 H 24 L - Physical Exam General Appearance: positive: No acute distress, Alert Eyes Bilateral: positive: PERRL, EOMI, No scleral icterus ENT: positive: No signs of dehydration Neck: positive: No JVD Respiratory: positive: No respiratory distress, Breath sounds nml Cardiovascular: positive: Regular rate & rhythm Abdomen: positive: Non-tender, No distention Neurologic/Psychiatric: positive: Oriented x3 Conclusion/Plan - Problem List (1) Lung cancer metastatic to bone Conclusion/Plan: plan port placement . parq held and consent obtained
[2021-11-17] MEDS ORDERED: ceFAZolin 1 GM VIAL ONE (08:11)
[2021-11-17] MEDS ORDERED: LIDOCAINE 1%-EPI 1:100000 20 ML MDV SUBQ ONE ×2 (08:26)
[2021-11-17] MEDS ORDERED: BUPIVACAINE 0.25% PF 30 ML VIAL SUBQ ONE ×2 (08:28)
[2021-11-17] MEDS ORDERED: oxyCODONE 5 MG TABLET PO PRN (08:53)
[2021-11-17] MEDS ORDERED: ONDANSETRON 4 MG/2 ML VIAL IVP PRN (08:53)
--- NOTE | 2021-11-17 08:58 | OPERATIVE REPORT ---
Operative Report - General Procedure Date: 11/17/21 Planned Procedure: left subclavian power port Pre-Op Diagnosis: metastatic lung cancer Procedure Performed: left subclavian power port placement Post Op Diagnosis: metastatic lung cancer - Procedure Note Primary Surgeon: jina gutierrez Anesthesia Technique: Local, MAC Estimated Blood Loss (mL): 2 Indications: need for chemotherapy port Findings: tip at the junction of svc and atrium. good flush and flow Complications: none - Other Other Information/Narrative: The patient was properly identified brought to the operating room and placed in supine position. Monitored anesthesia care was given as well as IV sedation. A towel roll was placed under the upper back. The patient was prepped and draped in a sterile fashion and given preoperative antibiotics. Local anesthetic was given. The left subclavian vein was easily accessed first pass with a needle. Guide wire placed and position confirmed. A subcutaneous pocket on the left upper chest was created measuring approximately 2-1/2 cm. Portacatheter tubing was then placed subcutaneous up to the venous access point. The portacatheter tubing was then easily placed with the use of a dilator peel-away sheath. The tubing was aspirated and flushed with saline. Under fluoroscopic guidance the tubing was pulled back to the junction of the atrium and the superior vena cava. The portacatheter aspirated and flushed easily assuring good position. The portacatheter was then cut to size and further assembled. The port was secured to subcutaneous tissue with 2 interrupted 4-0 Prolene sutures. The port again was aspirated and flushed now with heparin. Buried interrupted subdermal 3-0 Vicryl sutures were then placed. Skin was closed with buried interrupted and running 4-0 Monocryl subcuticular suture. Dressing was applied. The patient tolerated the procedure well was awakened and brought to recovery in good condition.
[2021-11-17 09:56] VITALS: BP 129/77
--- NOTE | 2021-11-17 13:57 | XRAY Report ---
PROCEDURE: OR Port-A-Cath INDICATIONS: PORTACATH PLACEM,ENT LEFT OR3 TECHNIQUE: Single intraoperative fluoroscopic image of upper chest COMPARISON: Chest radiograph dated 09/22/2021. FINDINGS: Intraoperative fluoroscopic image shows a left-sided central venous catheter with its tip projecting over the upper thoracic spine vertebral bodies. Exact location is difficult to determine based on the image given. Total fluoroscopy time is 13 seconds. IMPRESSION: Fluoroscopy guidance was provided intraoperatively for left-sided central venous catheter placemen Reviewed by: Kemal Campos MD on 11/17/2021 1:56 PM PST Approved by: Kemal Campos MD on 11/17/2021 1:56 PM PST Station ID: [id number]
--- NOTE | 2021-11-17 18:14 | ANESTHESIA POST OP EVALUATION ---
Anesthesia Post Eval - Post Anesthesia Eval Vitals: Last Vital Signs Temp 37 C 11/17/21 09:25 Pulse 77 11/17/21 09:40 Resp 20 11/17/21 09:40 BP 129/77 11/17/21 09:40 Pulse Ox 92 11/17/21 09:40 CV Function Including HR & BP: Stable Pain Control: Satisfactory Nausea & Vomiting: Negative Mental Status: Baseline Respiratory Status: Airway Patent Hydration Status: Satisfactory Anesthesia Complications: None
== END 2021-11-17 06:26 | disposition home or self-care (01) ==
LOC: SDS 06:25
PROVIDERS: ATTEND Surgery
DX: C34.90 Malignant neoplasm of unspecified part of unspecified bronchus or lung (principal); C79.51 Secondary malignant neoplasm of bone
CPT/HCPCS: 36561; C1788; J7120

== ENCOUNTER 2021-11-23 16:18 | Outpatient (CLI) | payer MEDICARE, OTHER ==
--- NOTE | 2021-11-23 21:22 | CONSULTATION NOTE ---
Palliative Care Follow Up - Referral Referring Provider: Dr. Derrell Griffin Time of Visit: 1230 75 minutes Referral setting: [facility] – [place] Referral Reason: Dyspnea/Pain of neoplastic origin/large neuroendocrine met lung CA bone/jerry - Information Sources Records reviewed: RN notes reviewed, Previous records reviewed History/Review of Systems obtained from: Patient, Family ( Beck present) Exam limitations: Clinical condition (patient exhausted/overwhelmed) - History of Present Illness Update Brief HPI Update: This is a 70-year-old woman with rapidly progressive metastatic lung cancer, with known multiple bony and hepatic metastasis. She has had escalating pain, for which she has been titrating her pain medications over the last several days. She presents today with worsening dyspnea in the setting of a known large right pleural effusion, and hypoxic at 85% at rest. Because of her known metastatic bony disease, rapidly worsening pain, she was sent to [place] for concern for spinal cord compression. She did have an MRI of her spine, she has extensive disease but is not a surgical candidate, and she did not have impending spinal cord compression. They are unable to offer her anything, and did not admit her for pain control. She is pending a urgent referral to radiation oncology, they have made contact they received the referral but has not received an appointment yet. She is pending a urgent referral to radiation oncology, they have made contact they received the referral but has not received an appointment yet. Unfortunately throughout this patient has not had her chemotherapy yet, and is here today day to receive Carboplatinum/etoposide and Keytruda.. She does understand the seriousness of her illness, is anxious to at least give treatment a try for both quality and quantity of life. Her current pain regimen which has been escalated quickly over the last several days, includes MS Contin 30 mg tabs, 60 mg a.m., 60 mg late afternoon, and she did titrate up to 90 mg last night. We had added pregabalin 50 mg a.m., 50 mg late afternoon and 100 mg at bedtime. She reports she is resting well last night with at least 5 hours of sleep. She has also been titrated up on her dexamethasone as this is made the most difference in her bony pain, currently on 6 mg in the am and 4 mg in the afternoon, she does have an elevated white count of 21.5 most likely reflective of this. She does not have any fever or chills. She is using oxycodone 20 mg every 3 hours as needed for breakthrough pain which she consistently still has needed though at this does seem to have improved. Her pain is described mostly at this point in time is under her left breast, tender to palpation on exam. She also describes it as wrapping around her left side, considering also referred pain as she does have known mediastinal left hand mass-effect shift. She also identifies at the places where she has had a compression fractures, has a area around T3, mid back, and then has persistent pain across her lower back which results in spasms particularly with any weightbearing or movement. She also has discomfort related to her ascites and abdominal pressure. At time of visit, she rates her pain a 5 out of 10, has been fairly exhausted but has made fair progress. Patient also is complaining of increased dyspnea today. On examination she has no breath sounds about two thirds way up, she presents with hypoxia 85% at rest, placed 2 L of oxygen on her for her chemotherapy and arrangements made for an urgent thoracentesis for relief of her distress. She is tacky at 104, and demonstrates respiratory effort with any kind of movement. She very much wants to avoid further evaluation at ED, and is hoping to be able to get relief and avoid hospitalization. Past Medical History: Chronic constipation, chronic vision loss, history of basal cell CA, recent liver biopsy, Port-A-Cath placement 11/17 Social History - Living Situation Living arrangement: At home Living Situation: With spouse/s.o. Support System: Patient lives at home with her Beck, they have no children and very little community support. 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 She is always been quite independent and able to take care of herself, and avid hiker and has not been ill so this is quite perplexing and a difficult experience for them both. Medications/Allergies - Medications Home Medications: Ambulatory Orders Medication Instructions Recorded Confirmed Morphine ER [Morphine Sulfate ER] 30 mg PO .60 AM / AFT; 90 PM 11/10/21 11/23/21 Naloxone HCl Nasal [Narcan] 1 spray BENTON DAILY PRN 11/10/21 11/23/21 Ondansetron HCl [Zofran] 4 mg PO Q6HR PRN 11/10/21 11/23/21 Oxycodone HCl 20 mg PO Q3HR PRN 11/10/21 11/23/21 Senna [Senokot] 4 tab PO TID 11/10/21 11/23/21 dexAMETHasone [Decadron] 4 mg PO .6 AM 4 MG AFT 11/10/21 11/23/21 polyethylene glycoL 3350 [Miralax] 17 gm PO BID MDD TID 11/15/21 11/23/21 Pregabalin [Lyrica] 50 mg PO .50 AM/AFT 100 PM 11/23/21 11/23/21 tiZANidine [Zanaflex] 4 mg PO TID PRN 11/23/21 11/23/21 - Allergies Allergies/Adverse Reactions: Allergies Allergy/AdvReac Type Severity Reaction Status Date / Time Sulfa (Sulfonamide Allergy Unknown Verified 11/17/21 07:01 Antibiotics) Review of Systems - Constitutional Constitutional: reports: Fatigue, Weakness (worsening), Weight loss (increasing cachexia but in setting of worsening ascites and LE edema) - Eyes Eyes: reports: Vision loss, Corrective lenses - Ears, Nose & Throat Ears, Nose & Throat: reports: Tinnitus, Dry mouth, Other (taste changes) - Cardiovascular Cardiovascular: reports: Palpitations, Edema (new last few days), Exertional dyspnea, Decr. exercise tolerance - Respiratory Respiratory: reports: Cough, Orthopnea, SOB at rest, SOB with exertion. denies: Wheezing - Gastrointestinal Gastrointestinal: reports: Constipation (currently BM yesterday; following bowel program), Nausea (intermittent), Bloating, Early satiety - Genitourinary Genitourinary: reports: Incontinence (new symptom; worse in am) - Musculoskeletal Musculoskeletal: reports: Muscle pain, Back pain, Muscle aches, Stiffness, Limited range of motion, Muscle weakness, Assistive devices (needing walker for pain relief/offload and weakness) - Integumentary Integumentary: reports: Dryness - Neurological Neurological: reports: General weakness, Numbness, Memory problems (mild with escalating medications), Abnormal gait - Psychiatric Psychiatric: reports: Anxiety - Endocrine Endocrine: reports: Intolerance to cold - All Other Systems All Other Systems: reports: Reviewed and negative Physical Exam - Vital Signs Temperature: 36.9 C Pulse Rate: 104 Respiratory Rate: 20 (24 with ambulation/effort) O2 Saturation: 85 (ra @ rest see F2F) Blood Pressure: 149/89 - Physical Exam General Appearance: positive: Alert, Moderate distress (with dyspnea), Other (very pale/wilson) Eyes Bilateral: positive: Normal inspection, No scleral icterus ENT: positive: No signs of dehydration Neck: positive: Trachea midline Cardiovascular: positive: Tachycardia Respiratory: positive: Other (no BS RLL 2/3 up; known pleural effusion) Abdomen: positive: Abnml bowel sounds (distant), Tenderness, Taut Skin: positive: Pallor Extremities: positive: Pedal edema (1-2 + up to knees). negative: Full ROM Neurologic/Psychiatric: positive: Oriented x3, Depressed mood/affect, Flat affect Palliative Care - POLST Patient has POLST: Yes POLST Status: DNR, Selective Treatment (completed at visit today) Pain: Pain worsening, Location (see HPI), Severity (5/10) Tiredness/Fatigue: Moderate (4-6) Drowsiness/Sedation: Moderate (4-6) Nausea: Mild (1-3) Anorexia: Mild (1-3) Dyspnea: Moderate (4-6) (worsening last few days) Depression: Mild (1-3) Anxiety: Mild (1-3) Feelings of wellbeing/Perceived Quality of Life: Poor, Worsening Sleep: Sleep improved (last night able to get 5 hours), Variable sleep pattern Constipation: Yes, Opoid induced, Intermittent constipation Performance Status: Patient's performance status continues to decline, this is limited both by pain and dyspnea. She is now dependent on walker, and is sedentary greater than 50% of the time. - Palliative Care Discussion: Patient with continuing complications, we did introduce conversation regarding goals of care. Patient would really like to try treatment, looking for both quality and quantity of life. It has felt like has had obstacles and is just now receiving treatment. She does have advanced care documents, but discussed given the complexity of her situation, would like to introduce the POLST. After much discussion, she would like to be a DN AR/allow natural , but currently would accept treatment, hospitalization and interventions until has a chance to see if chemotherapy works. So we selected selective treatments, form completed, with goals to focus on quality of life, treat reversible conditions and at end-of-life comfortable respectful at home. She does understand the seriousness of her illness, and at end-of-life would like to be at home with hospice. Results - Lab Results Lab results reviewed: Yes Impression and Recommendations - Palliative Care Impression: This is a 70-year-old woman who continues to have symptoms of progressive disease, with worsening pain, dyspnea, ascites, here to receive her first round of treatment. Patient presents with hypoxia, suspect related to her worsening symptoms from right pleural effusion, arrangements made for thoracentesis after chemotherapy today. Patient continues with escalating pain, will continue to titrate pain medications, awaiting follow-up from radiation oncology. Palliative care continue provide support for pain and symptom management, coordination of care, and anticipatory guidance. Recommendations/Counseling Done: 1. Pain of neoplastic origin. This is multifactorial including visceral, bone pain, mass-effect of the enlarging right pleural effusion and mediastinal mets. Continue to titrate medications aggressively, is feeling some improvement overall. Currently on MS Contin 60 mg a.m., late afternoon, and 90 mg at bedtime. Is currently with pregabalin 50 mg a.m., 50 mg late afternoon and 100 mg at bedtime. She is continues oxycodone 20 mg every 3 hours for breakthrough pain. Will reach out to radiation oncology related to ability to get in soon. 2. Constipation. Patient at baseline has chronic constipation, reports bowels have moved in last 48 hours, continue to titrate senna and MiraLAX with goal for soft BM daily. 3. Hypoxia. This is multifactorial, patient has known tumor burden, worsening pleural effusion suspected, arrangements made for urgent thoracentesis and home oxygen. Respiratory therapy consulted for evaluation for home oxygen. Face to face completed. *Patient was hypoxic at rest with O2 sats 85%, on 1 L at rest her O2 sats improved to 93%, with exertion on 1 L per nasal cannula her O2 sats are 88%, and finally on 2 L her sats are 93%. I am ordering home O2 with 1 L at rest and 2 L with exertion to treat her lung cancer and subsequent hypoxia. 4. Advanced care planning. Patient does have "living will" and advance care planning documents, we did discuss in the context of my concerns if needs to call 911 or go to ED will need POLST. Discussion and education provided, completed with do not attempt resuscitation/allow natural and selective treatments. Currently she would accept treatment for reversible conditions, is hopeful both for quality and quantity of time and to be able to trial chemotherapy. She is just now getting her first treatment. 75 minutes review of chart, imaging, ED notes from [place], oncology notes and order and review of pertinent labs. Coordination of care with diagnostic imaging for urgent thoracentesis, home O2 evaluation needed, and counseling with patient for pain and symptom management and anticipatory guidance.
[2021-11-24] MEDS ORDERED: lidocaine 1% 20 ML MDV SUBQ ONE (10:24)
== END 2021-11-23 16:19 | disposition home or self-care (01) ==
LOC: PC 16:18
PROVIDERS: ATTEND Nurse Practitioner Adult Health
DX: Z51.5 Encounter for palliative care (principal); C34.90 Malignant neoplasm of unspecified part of unspecified bronchus or lung; G89.3 Neoplasm related pain (acute) (chronic); C78.7 Secondary malignant neoplasm of liver and intrahepatic bile duct; C78.1 Secondary malignant neoplasm of mediastinum; C79.51 Secondary malignant neoplasm of bone; K59.03 Drug induced constipation; T40.2X5A Adverse effect of other opioids, initial encounter; J90 Pleural effusion, not elsewhere classified; R09.02 Hypoxemia; Z66 Do not resuscitate
CPT/HCPCS: 99354

== ENCOUNTER 2021-11-25 15:54 | Outpatient (CLI) | payer MEDICARE, OTHER ==
--- NOTE | 2021-11-25 16:15 | CONSULTATION NOTE ---
Palliative Care Follow Up - Referral Referring Provider: Dr. Derrell Griffin Time of Visit: 11:00 45 minutes Referral setting: [facility] [place] Referral Reason: Pain of neoplastic origin/Constipation/Dyspnea/Hypoxia/Met Lung CA - Information Sources Records reviewed: RN notes reviewed, Previous records reviewed History/Review of Systems obtained from: Patient, Family ( Beck present) Exam limitations: Clinical condition (mild STM deficits related to meds) - History of Present Illness Update Brief HPI Update: This is a 70-year-old woman with rapidly progressing metastatic lung cancer, with known multiple bony and hepatic mets. She has been having escalating pain, today it does feel like we are making progress that she is still using her oxycodone 20 mg every 3-4 hours. She is currently in review taking MS Contin 60 mg a.m., 60 mg at 1400, and 90 mg at p.m. In conjunction with that she is using pregabalin 50 a.m., pregabalin 50 mg mid afternoon, and 100 mg at bedtime. She did have a good night last night with several hours of good sleep. She has continued to feel better after her thoracentesis which they removed 2 L of serosanguineous fluid. Her most persistent pain currently, is some left rib tenderness wrapping around her left rib cage, tender to palpation, and with some mild swelling. She also has worsening ascites, and lower extremity edema. Her breathing has improved, she still has diminished breath sounds in the right lower lobe with some fine crackles about a third of the way up. She is using oxygen at 1 L, 95% on, and 90% at rest off. She is finding it somewhat irritating, and would like to have some freedom to use it on and off. In clarification patient has only been taking dexamethasone 4 mg a.m. and 2 mg in p.m., she has had a bowel movement most regularly every day, has been somewhat soft. She has been using MiraLAX twice daily, with senna 4 tabs 3 times a day. Patient is here for her third day of chemotherapy, she has not had any persistent nausea, and is feeling better at this point in time with pain better controlled and better sleep. Her breathing is improved with the thoracentesis, but it has been somewhat of an overwhelming ride, and her most discussed comfort at this point in time appears to be her ascites and lower extremity edema today Past Medical History: Is been fairly healthy most of her life, other than chronic constipation, chronic vision loss, history of basal cell CA and recent liver biopsy and Port-A-Cath placement Social History - Living Situation Living arrangement: At home Living Situation: With spouse/s.o. Support System: Patient lives at home with her Beck, they are and do not have any children. She does have minimal community family/friends support. Both she and Beck feeling overwhelmed at the rapid decline of her status and the multiple changes needed to continue to address her symptom management. Medications/Allergies - Medications Home Medications: Ambulatory Orders Medication Instructions Recorded Confirmed Morphine ER [Morphine Sulfate ER] 30 mg PO .60 AM / AFT; 90 PM 11/10/21 11/25/21 Naloxone HCl Nasal [Narcan] 1 spray BENTON DAILY PRN 11/10/21 11/25/21 Ondansetron HCl [Zofran] 4 mg PO Q6HR PRN 11/10/21 11/25/21 Oxycodone HCl 20 mg PO Q3HR PRN 11/10/21 11/25/21 Senna [Senokot] 4 tab PO TID 11/10/21 11/25/21 dexAMETHasone [Decadron] 4 mg PO .4 MG AM & 2 MG PM 11/10/21 11/25/21 polyethylene glycoL 3350 [Miralax] 17 gm PO DAILY MDD bid 11/15/21 11/25/21 Pregabalin [Lyrica] 50 mg PO .50 AM/AFT 100 PM 11/23/21 11/25/21 tiZANidine [Zanaflex] 4 mg PO TID PRN 11/23/21 11/25/21 Furosemide [Lasix] 10 mg PO DAILY 11/25/21 11/25/21 Spironolactone [Aldactone] 25 mg PO DAILY 11/25/21 11/25/21 - Allergies Allergies/Adverse Reactions: Allergies Allergy/AdvReac Type Severity Reaction Status Date / Time Sulfa (Sulfonamide Allergy Unknown Verified 11/17/21 07:01 Antibiotics) Review of Systems - Constitutional Constitutional: reports: Fatigue, Weakness (worsening), Weight loss (increasing cachexia but in setting of worsening ascites and LE edema; weight today 146.3 with clothes on) - Eyes Eyes: reports: Vision loss, Corrective lenses - Ears, Nose & Throat Ears, Nose & Throat: reports: Tinnitus, Dry mouth, Other (taste changes) - Cardiovascular Cardiovascular: reports: Palpitations, Edema (worsening; uncomfortable for patient), Exertional dyspnea (some improvement with thoracentesis and oxygen), Decr. exercise tolerance - Respiratory Respiratory: reports: Cough, Orthopnea, SOB at rest (improved), SOB with exertion. denies: Wheezing - Gastrointestinal Gastrointestinal: reports: Nausea (intermittent), Bloating, Early satiety. denies: Constipation (following bowel program currently controlled) - Genitourinary Genitourinary: reports: Incontinence (new symptom; worse in am; worsening with pressure of abdomen) - Musculoskeletal Musculoskeletal: reports: Muscle pain, Back pain, Muscle aches, Stiffness, Limited range of motion, Muscle weakness, Assistive devices (needing walker for pain relief/offload and weakness) - Integumentary Integumentary: reports: Dryness - Neurological Neurological: reports: General weakness, Numbness, Memory problems (mild with escalating medications), Abnormal gait - Psychiatric Psychiatric: reports: Anxiety (improved) - Endocrine Endocrine: reports: Intolerance to cold - All Other Systems All Other Systems: reports: Reviewed and negative Physical Exam - Vital Signs Pulse Rate: 89 (sitting; standing 86) Respiratory Rate: 18 O2 Saturation: 95 (1 liter; 90 on ra @ rest) Blood Pressure: 135/72 (sitting; 131/66 standing ) - Physical Exam General Appearance: positive: No acute distress, Alert Eyes Bilateral: positive: Normal inspection, No scleral icterus ENT: positive: No signs of dehydration Neck: positive: Trachea midline Cardiovascular: positive: Regular rate & rhythm Respiratory: positive: Diminished in bases, Rales (fine crackles RLL). negative: No respiratory distress (improved but still effort) Abdomen: positive: Abnml bowel sounds (distant), Tenderness, Taut Skin: positive: Pallor Extremities: positive: Pedal edema (1-2 + up to knees). negative: Full ROM Neurologic/Psychiatric: positive: Oriented x3, Mood/affect nml, Flat affect Palliative Care - POLST Patient has POLST: Yes POLST Status: DNR, Selective Treatment Pain: Pain improved, Location (left rib/thoracic area; lower back; abdominal pressure and feet with swelling), Severity (feels currently controlled) Sleep: Sleep improved Constipation: Yes, Opoid induced, Managed Performance Status: Patient continues to be challenged with activity intolerance, mostly related to dyspnea, worsening lower extremity edema and weakness, as well as pain. She is ambulatory with a walker, does need some assistance from her . Has not been able to participate in household tasks which is quite frustrating for her. - Palliative Care Discussion: Patient and feel like they are finally making some progress, patient did have a better night last night. We reviewed medication again as well as use of oxygen. They were able to get the morphine though this was very stressful as he had gotten down to the last few tablets. They continue to hope for the best and some better days over the next weekend. Unfortunately she has developed worsening ascites and lower extremity edema, will continue to work on quality of life issues. Patient did complete a POLST at our last visit with DN AR and DNI with selective treatments, she is hoping that she has some time to see response to her treatment, though recognizes that things have been changing fairly quickly. Results - Lab Results Lab results reviewed: Yes Impression and Recommendations - Palliative Care Impression: This is a 70-year-old woman with metastatic lung cancer, to bone and liver. She is currently receiving her third day of her first round of treatment. She did have a better night last night, are starting to see some improvements in her pain management with medication adjustments, radiation oncology had not been able to locate referral, referral sent for support. Patient presenting with worsening ascites and lower extremity edema causing increased discomfort. Patient currently with improvement from her thoracentesis of her right pleural effusion, breathlessness is improved but she continues with home oxygen. Palliative care continue provide support for pain and symptom management, coordination of care and anticipatory guidance. Recommendations/Counseling Done: 1. Pain of neoplastic origin. This is multifactorial including visceral, bone pain, mass-effect of resolving right pleural effusion, mediastinal mets. Patient currently on MS Contin 60 mg a.m., late afternoon and 90 mg at bedtime with concurrent pregabalin 50 mg a.m. 50 mg p.m. and 100 mg at bedtime. She is starting to feel more relief, encouraged to stretch out her oxycodone 20 mg to 4 to 5 hours if possible, with the goal to use minimal breakthrough medication. Patient has been verbalized understanding. Patient oncology referral has been sent for assistance with pain management. 2. Constipation. Patient is having somewhat soft stools, will decrease MiraLAX to 1 time a day, but continue with the senna for tabs 3 times daily, as she is going every 1 to 2 days with this regimen. 3. Hypoxia. This was multifactorial, has improved with thoracentesis removal of 2 L of serosanguineous fluid. She still is at 90% room air without movement, encouraged to continue use 2 L with activity, and 1 L at bedtime and most times she just wanted to be able to take a break from time to time. Have confirmed that this would be okay she is can get an oximeter to be able to monitor more closely. Teaching done regarding parameters. 4. Ascites. Patient does have tolerable blood pressure, though last renal function tests done 09/13. We will start gently, patient has been instructed to weigh daily and record blood pressure with one half tab furosemide 20 mg to equal 10 mg and 1 tab spironolactone 25 mg. They have been instructed to hold if less than 110 or 60 or dizziness. Will make arrangements for labs next week, and titrate up if seems effective, or patient may need paracentesis for comfort. 5. Advanced care planning. We did complete a POLST with DN AR/DNI last visit, with selective treatments. Patient continues to hope for the best, response to treatment, we are making progress on her symptom management. Patient very aware of the seriousness of her illness, but would accept treatment for reversible conditions at this point in time. We will continue to build support and rapport to assist with further future planning. 45 minutes with review of chart, orthostatic blood pressures, [id number] with patient and for counseling regarding pain and symptom management at home and management of hypoxia as well as ascites, will initiate diuretics. Patient and provided written instructions and reviewed.
== END 2021-11-25 15:55 | disposition home or self-care (01) ==
LOC: PC 15:54
PROVIDERS: ATTEND Nurse Practitioner Adult Health
DX: Z51.5 Encounter for palliative care (principal); G89.3 Neoplasm related pain (acute) (chronic); C34.90 Malignant neoplasm of unspecified part of unspecified bronchus or lung; C78.7 Secondary malignant neoplasm of liver and intrahepatic bile duct; C79.51 Secondary malignant neoplasm of bone; K59.03 Drug induced constipation; T40.2X5A Adverse effect of other opioids, initial encounter; R09.02 Hypoxemia; R18.8 Other ascites; Z79.899 Other long term (current) drug therapy; Z79.891 Long term (current) use of opiate analgesic; Z99.81 Dependence on supplemental oxygen; Z66 Do not resuscitate
CPT/HCPCS: 99215

== ENCOUNTER 2021-12-03 11:56 | Outpatient (CLI) | payer MEDICARE, OTHER ==
[2021-12-03 12:39] LABS: BASOPHILS % (AUTO) 0.5 %; EOSINOPHILS # (AUTO) 0.1 10^3/uL (0.0-0.7); EOSINOPHILS % (AUTO) 0.8 %; HGB - HEMOGLOBIN 10.4 g/dL (12.0-16.0); LYMPHOCYTES # (AUTO) 1.1 10^3/uL (1.5-3.5); LYMPHOCYTES % (AUTO) 15.4 %; MEAN CORPUSCULAR HEMOGLOBIN 28.9 pg (27.0-31.0); MEAN CORPUSCULAR HGB CONC 32.5 g/dL (32.0-36.0); MEAN CORPUSCULAR VOLUME 88.9 fL (81.0-99.0); MEAN PLATELET VOLUME 11.5 fL (7.9-10.8); MONOCYTES # (AUTO) 0.7 10^3/uL (0.0-1.0); MONOCYTES % (AUTO) 9.3 %; NEUTROPHILS # (AUTO) 5.1 10^3/uL (1.5-6.6); PLT - PLATELET COUNT 141 10^3/uL (130-450); RED CELL DISTRIBUTION WIDTH 14.1 % (12.0-15.0); WHITE BLOOD COUNT 7.4 x10^3/uL (4.8-10.8)
[2021-12-03 12:43] LABS: SLIDE REVIEW? Indicated
[2021-12-03 12:48] LABS: ALBUMIN 2.9 g/dL (3.2-5.5); ALBUMIN/GLOBULIN RATIO 0.8 (1.0-2.2); BILIRUBIN,TOTAL 0.3 mg/dL (0.2-1.0); CALCIUM 8.9 mg/dL (8.5-10.3); POTASSIUM 4.2 mmol/L (3.5-5.0); TOTAL PROTEIN 6.7 g/dL (6.7-8.2)
[2021-12-03 13:45] LABS: INR 1.1 (0.8-1.2); PT - PROTHROMBIN TIME 12.4 secs (9.9-12.6)
[2021-12-03] MEDS ORDERED: lidocaine 1% 20 ML MDV ONE (13:55)
[2021-12-03 14:09] LABS: PLATELET MORPHOLOGY NORMAL APPEARANCE (NORMAL); RBC MORPHOLOGY (MULTIPLE) NORMAL APPEARANCE (NORMAL); WBC MORPHOLOGY (MULTIPLE) NORMAL APPEARANCE (NORMAL)
[2021-12-03 14:10] LABS: PLATELET ESTIMATE, MANUAL DECREASED (<130,000) (NORMAL)
[2021-12-03 14:18] LABS: PARTIAL THROMBOPLASTIN TIME 21.8 secs (24.9-33.3)
--- NOTE | 2021-12-03 15:17 | Ultrasound Report ---
PROCEDURE: Abdomen Limited INDICATIONS: Rt lung CA TECHNIQUE: Real-time focused scanning was performed of the abdomen, with image documentation. COMPARISON: Reference is made to the CT abdomen dated November 12, 2021. FINDINGS: Incidental right pleural effusion. No significant abdominal ascites. IMPRESSION: No significant abdominal ascites. Reviewed by: Sharif Collado MD on 12/03/2021 3:16 PM PST Approved by: Sharif Collado MD on 12/03/2021 3:16 PM PST Station ID: [id number]
== END 2021-12-03 11:57 | disposition home or self-care (01) ==
LOC: LAB 11:56 → DI 11:57
PROVIDERS: ATTEND Nurse Practitioner Adult Health
DX: C34.91 Malignant neoplasm of unspecified part of right bronchus or lung (principal)
CPT/HCPCS: 36415; 80053; 85025; 85610; 85730

== ENCOUNTER 2021-12-03 14:30 | Outpatient (CLI) | payer MEDICARE, OTHER ==
--- NOTE | 2021-12-03 15:47 | CONSULTATION NOTE ---
Palliative Care Follow Up - Referral Referring Provider: Dr. Derrell Griffin Time of Visit: 1430 60 minutes Referral setting: [facility] Referral Reason: Pain of neoplastic origin/Right Pleural Effusion/Met Lung CA/Ascites - Information Sources Records reviewed: Previous records reviewed History/Review of Systems obtained from: Patient, Family ( Beck) Exam limitations: No limitations - History of Present Illness Update Brief HPI Update: This is a 70-year-old woman with rapidly progressing metastatic lung cancer, wit h known multiple bony and hepatic metastases. She has had escalating pain, and worsening for dyspnea.When seen on 11/23/21 she did present with a worsening pleural effusion, and was seen urgently by DI with removal of 2 liters of Serosanguineous fluid, with relief, though still remains somewhat hypoxic. She is doing better at rest, with any activity does desat and gets quite breathless. She has a pending referral to radiation oncology still presents with fairly persistent pain in her mid thoracic area radiating around to her left and right left greater than right. The does cause a significant amount of pain and discomfort with any kind of movement coughing, or deep breathing. She also has pain in her lower sacral area and right hip groin area. Patient also presented with worsening abdominal tightness, increasing lower extremity edema, and difficulty with abdominal pressure. I did start her on diuretics, patient actually did lose several pounds, with improvement in her discomfort as well as her lower extremity edema. She had been scheduled for an urgent ultrasound of the abdomen and possible paracentesis, did reach out to radiology with information may not need at this point, they will evaluate if fluid levels worsening or risk outweighs benefit given patient's improvement. Whom it may be attributed both to response of treatment last week, as well his diuretics. Patient did get evaluation, no significant abdominal ascites found, and was not needed to be tapped. Does still show persistent right pleural effusion, will need to continue to monitor. Patient does present with O2 sats of 90% at rest, but with any activity of ambulation of 5 feet, did desat to 86%. Patient is having trouble with her oximeter and unable to monitor at home. Recommended get new oximeter, and encouraged to continue to keep oxygen on in the context of her persistent fatigue and breathlessness, may take off at rest if her oxygen levels are greater than 92 to 93%, otherwise to use with activity as well as at bedtime. Her breath sounds are decreased in the right lower lobe about a quarter the way up, suspect it is reaccumulating. She is still feeling though more comfortable, and today actually presents with improved mobility, more vigor, and feeling better overall with her pain control. In review of her current regimen, it is time-released morphine 60 mg a.m., 60 mg p.m., and 90 mg at bedtime. Somehow in her translation, she is only taking the pregabalin 3 times daily, had been taking 100 at night but is sleeping well so will not change at this time. She currently is taking dexamethasone 4 mg in the a.m. and 2 mg in the afternoon, will drop the 2 mg in the afternoon, as patient should titrate off. She continues use oxycodone 20 mg every 3 hours as needed but is able to stretch that out to 5 or 6 hours currently. She is quite pleased with her current regimen, no changes made other than decreasing the dexamethasone currently. Social History - Living Situation Living arrangement: At home Living Situation: With spouse/s.o. Support System: Patient lives at home with her lobo Beck, they have no children and no local family support. 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 She is always been quite independent and able to take care of herself and have a hiker so is not used to being ill or with any kind of disability. This is been a difficult experience for them both. Medications/Allergies - Medications Home Medications: Ambulatory Orders Medication Instructions Recorded Confirmed Morphine ER [Morphine Sulfate ER] 30 mg PO .60 AM / AFT; 90 PM 11/10/21 12/05/21 Naloxone HCl Nasal [Narcan] 1 spray BENTON DAILY PRN 11/10/21 12/05/21 Ondansetron HCl [Zofran] 4 mg PO Q6HR PRN 11/10/21 12/05/21 Oxycodone HCl 20 mg PO Q3HR PRN 11/10/21 12/05/21 Senna [Senokot] 4 tab PO TID 11/10/21 12/05/21 dexAMETHasone [Decadron] 4 mg PO DAILY 11/10/21 12/05/21 polyethylene glycoL 3350 [Miralax] 17 gm PO DAILY MDD bid 11/15/21 12/05/21 Pregabalin [Lyrica] 50 mg PO TID 11/23/21 12/05/21 Furosemide [Lasix] 10 mg PO DAILY 11/25/21 12/05/21 Spironolactone [Aldactone] 25 mg PO DAILY 11/25/21 12/05/21 - Allergies Allergies/Adverse Reactions: Allergies Allergy/AdvReac Type Severity Reaction Status Date / Time Sulfa (Sulfonamide Allergy Unknown Verified 11/17/21 07:01 Antibiotics) Review of Systems - Constitutional Constitutional: reports: Fatigue, Weakness (improved; ambulating better), Weight loss (increasing cachexia but in setting of worsening ascites and LE edema; weight 11/23 146.3 with clothes on; this am at home 134.4 almost 10 pounds) - Eyes Eyes: reports: Vision loss, Corrective lenses - Ears, Nose & Throat Ears, Nose & Throat: reports: Tinnitus, Dry mouth, Other (taste changes) - Cardiovascular Cardiovascular: reports: Edema (less than 1+ bilat up to ankles vs knees), Exertional dyspnea (some improvement with thoracentesis and oxygen), Decr. exercise tolerance - Respiratory Respiratory: reports: Cough, Orthopnea, SOB at rest (improved), SOB with exertion. denies: Wheezing - Gastrointestinal Gastrointestinal: reports: Nausea (intermittent), Bloating, Early satiety. denies: Constipation (following bowel program currently controlled) - Genitourinary Genitourinary: reports: Incontinence (improved) - Musculoskeletal Musculoskeletal: reports: Muscle pain, Back pain, Muscle aches, Stiffness, Limited range of motion, Muscle weakness, Assistive devices (needing walker for pain relief/offload and weakness) - Integumentary Integumentary: reports: Dryness - Neurological Neurological: reports: General weakness, Numbness, Memory problems (mild with escalating medications), Abnormal gait - Psychiatric Psychiatric: reports: Anxiety (improved) - Endocrine Endocrine: reports: Intolerance to cold - All Other Systems All Other Systems: reports: Reviewed and negative Physical Exam - Vital Signs Pulse Rate: 78 Respiratory Rate: 18 Blood Pressure: 129/59 (patient record) - Physical Exam General Appearance: positive: No acute distress, Alert Eyes Bilateral: positive: Normal inspection, No scleral icterus ENT: positive: No signs of dehydration Neck: positive: Trachea midline Cardiovascular: positive: Regular rate & rhythm Respiratory: positive: Diminished in bases (RLL about 1/[address] up). negative: No respiratory distress (improved but still effort) Abdomen: positive: Tenderness, Distended (improved; last appointment was taut) Skin: positive: Pallor, Dryness Extremities: positive: Pedal edema. negative: Full ROM Neurologic/Psychiatric: positive: Oriented x3, Mood/affect nml, Weakness Palliative Care - POLST Patient has POLST: Yes POLST Status: DNR, Selective Treatment Pain: Pain improved, Location (midthoracic area radiating around left rib area; right hip area/back with standing), Severity (moderate/improved) Tiredness/Fatigue: Moderate (4-6) Drowsiness/Sedation: Mild (1-3) Nausea: None Anorexia: Mild (1-3) Dyspnea: Moderate (4-6) Depression: Mild (1-3) Anxiety: Moderate (4-6) Feelings of wellbeing/Perceived Quality of Life: Fair, Acceptable, Improved Sleep: Sleeps well, Sleep improved Constipation: Yes, Opoid induced, Managed Performance Status: Patient is much easier and getting from sitting to standing, gait is more assured and steady. She is improved as far as her ADLs, still quite sedentary. Wanted to be "more active". - Palliative Care Discussion: Patient is feeling more hopeful now that she is feeling better and her pain is controlled. She does have an appointment with Dr. Griffin next week Monday, and radiation oncology next Monday. is feeling she can concentrate more now that her pain is improved, and her dyspnea. She is wondering the implications of all of this, and what to expect in the fSheuture. She does worry about the pressure she is put on her , his health and her increasing care needs. Counseling provided to normalize current feelings of uncertainty, feeling of overwhelm, and anticipatory grief and concerns. Results - Lab Results Lab results reviewed: Yes Lab and Imaging Results: Patient is tolerating diuretics, kidney function without any worsening findings, sodium 138, potassium 4.2, BUN 27, creatinine 1.0, anemia 10.4 hgb new Impression and Recommendations - Palliative Care Impression: This is a 70-year-old woman who has metastatic lung cancer, neuroendocrine type, with known bony and hepatic metastases. Has finished her first round of treatment, has some improvement with her dyspnea and hypoxia with thoracentesis, pain is better controlled, is responding to diuretics for lower extremity edema and ascites, no paracentesis needed today. Palliative care continue provide support for pain and symptom management, coordination of care and anticipatory guidance Recommendations/Counseling Done: 1. Pain of neoplastic origin. This is multifactorial, including visceral, bone pain, mass-effect of right pleural effusion, mediastinal mets, with improvement of thoracentesis. Patient's current medications are MS Contin 60 mg a.m., late afternoon and 90 mg at bedtime. Reviewed pregabalin currently she is taking it at 50 mg 3 times daily, is sleeping and not awakening in severe pain will leave at current dosing. Dexamethasone will decrease, currently at 4 mg a.m. and 2 mg p.m., will drop the p.m. dose for 4 mg daily and continue to titrate. Patient is currently doing well with her oxycodone, able to go 5 to 6 hours now, mostly with activity. Awaiting final consult to radiation oncology, for further support. 2. Constipation. Patient at baseline has chronic constipation, but is doing well with her bowel meds, titrating MiraLAX and senna appropriately. 3. Hypoxia. This is multifactorial, patient does show on her ultrasound right pleural effusion, so has had some reaccumulation, will need to continue to watch. Patient sats have improved but are still dropping with any activity. Patient has been encouraged to continue use oxygen with any kind of ambulation and at night. She is to get a new oximeter and monitor accordingly. 4. Generalized weakness. Patient is feeling quite sedentary and anxious to get moving again. We did discuss her fall risk, and ED continue to use a walker. Encouraged that she do a progressive ambulation program of someone and pay attention to pain and fatigue as well as wear her oxygen. Patient verbalized understanding. 5. Advanced care planning. Patient has completed a POLST with DNR I and DNI and selective treatments. She is currently continue to trial chemotherapy, hoping for a good outcome. She is continue to move forward on planning for end-of-life planning as well. We will continue to monitor and provide anticipatory guidance 60 minutes with review of labs, coordination of care with diagnostic imaging radiologist, [id number] with patient for pain and symptom management and anticipatory guidance
== END 2021-12-03 14:31 | disposition home or self-care (01) ==
LOC: PC 14:30
PROVIDERS: ATTEND Nurse Practitioner Adult Health
DX: Z51.5 Encounter for palliative care (principal); C34.90 Malignant neoplasm of unspecified part of unspecified bronchus or lung; G89.3 Neoplasm related pain (acute) (chronic); C78.7 Secondary malignant neoplasm of liver and intrahepatic bile duct; C79.51 Secondary malignant neoplasm of bone; J90 Pleural effusion, not elsewhere classified; Z66 Do not resuscitate; K59.09 Other constipation; R09.02 Hypoxemia; R53.1 Weakness; R64 Cachexia; R53.83 Other fatigue
CPT/HCPCS: 99215

== ENCOUNTER 2021-12-08 14:22 | Emergency (ER) | payer MEDICARE, OTHER ==
[2021-12-08] MEDS ORDERED: iohexoL-300 100 ML VIAL ONE (14:42)
--- NOTE | 2021-12-08 14:50 | ED Physician Documentation ---
PD HPI DYSPNEA - Stated complaint Stated Complaint: CHEST PX, SOA - Chief complaint Chief Complaint: Resp - History obtained from History obtained from: Patient - Additional information Additional information: This is a lobo 70-year-old woman with relatively recent diagnosis of stage IV lung cancer with malignant effusion that was drained in early October. She presented to her oncologist today who called me prior to arrival with 2 days of worsening shortness of breath and increased oxygen requirement noting that she wears 1 L of oxygen at home as needed. 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 : None HEENT: Chronic vision loss Psych: None Musculoskeletal: Other (rib fractures) Derm: Other - Past Surgical History General: Colonoscopy, Other (liver bx) Derm: Skin cancer surgery - Present Medications Home Medications: Ambulatory Orders Medication Instructions Recorded Confirmed Morphine ER [Morphine Sulfate ER] 30 mg PO .60 AM / AFT; 90 PM 11/10/21 12/08/21 Naloxone HCl Nasal [Narcan] 1 spray BENTON DAILY PRN 11/10/21 12/08/21 Ondansetron HCl [Zofran] 4 mg PO Q6HR PRN 11/10/21 12/08/21 Oxycodone HCl 20 mg PO Q3HR PRN 11/10/21 12/08/21 Senna [Senokot] 4 tab PO TID 11/10/21 12/08/21 dexAMETHasone [Decadron] 4 mg PO DAILY 11/10/21 12/08/21 polyethylene glycoL 3350 [Miralax] 17 gm PO DAILY MDD bid 11/15/21 12/08/21 Pregabalin [Lyrica] 50 mg PO TID 11/23/21 12/08/21 Furosemide [Lasix] 10 mg PO DAILY 11/25/21 12/08/21 Spironolactone [Aldactone] 25 mg PO DAILY 11/25/21 12/08/21 Apixaban [Eliquis] 10 mg PO BID #68 tablet 12/08/21 - Allergies Allergies/Adverse Reactions: Allergies Allergy/AdvReac Type Severity Reaction Status Date / Time Sulfa (Sulfonamide Allergy Unknown Verified 12/08/21 14:31 Antibiotics) - Social History Smoking Status: Never smoker - POLST Patient has POLST: Yes PD ED PE NORMAL - Vitals Vital signs reviewed: Yes - General General: Alert and oriented X 3, No acute distress - Cardiac Cardiac: RRR, No murmur - Respiratory Respiratory: No respiratory distress, Other (Diminished at the right base, kyphotic spine, nonlabored) - Abdomen Abdomen: Non tender - Extremities Extremities: Other (Trace pitting pedal edema, symmetric) - Neuro Neuro: Alert and oriented X 3, Normal speech - Psych Psych: Normal mood, Normal affect Results - Vitals Vitals: Vital Signs - 24 hr 12/08/21 12/08/21 12/08/21 14:27 18:27 18:34 Temperature 36.6 C Heart Rate 107 H 90 93 Respiratory 28 H 21 19 Rate Blood Pressure 156/81 H 113/67 129/78 O2 Saturation 92 97 96 12/08/21 12/08/21 12/08/21 19:09 19:30 20:00 Temperature Heart Rate 89 81 85 Respiratory 25 H 14 16 Rate Blood Pressure 124/71 125/70 124/72 O2 Saturation 99 97 98 Oxygen O2 Source Room air Oxygen Flow Rate 3 - EKG (time done) 1432 Rate: Rate (enter#) (98) Rhythm: NSR, LAE [place]: Normal Intervals: Normal MD QRS: Normal Ischemia: Non specific changes. No: ST elevation c/w ischemia, ST depression - Labs Labs: Laboratory Tests 12/08/21 12/08/21 12/08/21 15:00 15:00 15:00 WBC 19.2 H RBC 3.30 L Hgb 9.4 L Hct 29.2 L MCV 88.5 MCH 28.5 MCHC 32.2 RDW 15.6 H Plt Count 218 MPV 10.2 Neut # (Auto) Not Reportable Lymph # (Auto) Not Reportable [place] # (Auto) Not Reportable Eos # (Auto) Not Reportable Baso # (Auto) Not Reportable Absolute Nucleated RBC Not Reportable Total Counted 100 Band Neuts % (Manual) 11 H Abnorm Lymph % (Manual) 0 Nucleated RBC % Not Reportable Neutrophils # (Manual) 18.8 H Lymphocytes # (Manual) 0.4 L Monocytes # (Manual) 0.0 Eosinophils # (Manual) 0.0 Basophils # (Manual) 0.0 Differential Comment MANUAL DIFFERENTIAL Platelet Estimate NORMAL (130-450,000) Platelet Morphology NORMAL APPEARANCE RBC Morph Micro Appear NORMAL APPEARANCE Sodium 133 L Potassium 4.0 Chloride 99 L Carbon Dioxide 24 Anion Gap 10.0 BUN 28 H Creatinine 1.1 H Estimated GFR (MDRD) 49 L Glucose 157 H Calcium 8.1 L B-Natriuretic Peptide 79 - Rads (name of study) CTA chest Radiology: EMP read contemporaneously (The pulmonary angiogram shows distal left pulmonary embolism with slight right heart strain and a prominent right pleural effusion, mass lesion and mediastinal adenopathy) Procedures - Thoracentesis Preparation: Consent obtained, Sterile prep and drape, Sitting, Local - lidocaine Technique: Catheter over needle, Right Fluid: Bloody Aftercare: CXR obtained PD MEDICAL DECISION MAKING - ED course Complexity details: re-evaluated patient ED course: 70-year-old woman with stage IV lung cancer presents with increased shortness of breath. On work-up this is probably a combination of her pleural effusion and some PE burden. Case was discussed by phone with her oncologist, Dr. Derrell Griffin who recommends apixaban as his preferred anticoagulants. A thoracentesis was done for symptom relief. She does not appear to need admission to the hospital. Unfortunately postprocedural chest x-ray does show a small apical pneumothorax. Discussed need for repeat radiography in 6 hours to assess for stability. Care to oncoming EDMD at shift change to order and F/U midnight CXR. Departure - Departure Clinical Impression: Lung cancer metastatic to bone, Pleural effusion Pulmonary embolism Qualifiers: Pulmonary embolism type: multiple subsegmental (without acute cor pulmonale) Qualified Code(s): I26.94 - Multiple subsegmental pulmonary emboli without acute cor pulmonale Condition: Stable Record reviewed to determine appropriate education?: Yes Instructions: Embolism Pulmonary Dc Prescriptions: Apixaban [Eliquis] 10 mg PO BID #68 tablet Comments: Sent your prescription for the blood thinner to [facility] in [place]. Return for new or worsening symptoms. Follow-up with Dr. Griffin as scheduled.
[2021-12-08 15:10] LABS: BASOPHILS % (AUTO) 0.5 %; EOSINOPHILS % (AUTO) 0.1 %; HCT - HEMATOCRIT 29.2 % (37.0-47.0); HGB - HEMOGLOBIN 9.4 g/dL (12.0-16.0); MEAN CORPUSCULAR HEMOGLOBIN 28.5 pg (27.0-31.0); MEAN CORPUSCULAR HGB CONC 32.2 g/dL (32.0-36.0); MEAN CORPUSCULAR VOLUME 88.5 fL (81.0-99.0); MEAN PLATELET VOLUME 10.2 fL (7.9-10.8); MONOCYTES % (AUTO) 1.4 %; NEUTROPHILS % (AUTO) 90.9 %; PLT - PLATELET COUNT 218 10^3/uL (130-450); RED CELL DISTRIBUTION WIDTH 15.6 % (12.0-15.0); WHITE BLOOD COUNT 19.2 x10^3/uL (4.8-10.8)
[2021-12-08 15:13] LABS: ABNORMAL LYMPHS % (MANUAL) 0 %
[2021-12-08 15:18] LABS: CALCIUM 8.1 mg/dL (8.5-10.3); CREATININE 1.1 mg/dL (0.4-1.0)
[2021-12-08 16:39] LABS: BAND NEUTROPHILS % (MANUAL) 11 %; DIFFERENTIAL COMMENT MANUAL DIFFERENTIAL; LYMPHOCYTES # (MANUAL) 0.4 10^3/uL (1.5-3.5); LYMPHOCYTES % (MANUAL) 2 %; NEUTROPHILS # (MANUAL) 18.8 10^3/uL (1.5-6.6); PLATELET ESTIMATE, MANUAL NORMAL (130-450,000) (NORMAL); PLATELET MORPHOLOGY NORMAL APPEARANCE (NORMAL); RBC MORPHOLOGY (MULTIPLE) NORMAL APPEARANCE (NORMAL)
--- NOTE | 2021-12-08 16:50 | CT Report ---
PROCEDURE: ANGIO CHEST W/WO INDICATIONS: dyspnea, pe protocol CONTRAST: IV CONTRAST: Isovue 300 ml: 80 PO CONTRAST: *NO PO CONTRAST TECHNIQUE: After the administration of intravenous contrast, 2 mm axial images were acquired from the pulmonary apices to the posterior costophrenic angles during the arterial phase. In addition, 1 mm lung kernel and 5 mm soft tissue kernel reconstructions were performed. 3-dimensional coronal oblique maximum int ensity projection (MIP) reformats, 8 mm axial MIP, and 5 mm coronal and sagittal MPR reformats were t hen performed through the thorax. For radiation dose reduction, the following was used: automated exp osure control, adjustment of mA and/or kV according to patient size. COMPARISON: Chest x-ray 11/12/2021 FINDINGS: Image quality: Excellent. Pulmonary arteries: Thrombus is identified within the distal most aspect of the left main pulmonary a rtery extending into segmental branches of the left upper and lower lobe. There is questionable punct ate areas of luminal filling defect within distal branches of the right upper lobe distal pulmonary a rtery branches. Lungs and pleura: There is an unchanged appearance of moderate right pleural effusion with areas of s uperimposed consolidation. Right upper lobe mass lesion is again identified without change. Patchy ar eas of opacity are now present in the left base, new compared to prior exam. Mediastinum: Heart size is normal, without pericardial effusion. Mediastinal adenopathy is unchanged . Thoracic aorta is normal in caliber and enhancement. Esophagus is normal in caliber, without hiata l hernia. Bones and chest wall: Unchanged appearance of compression fracture at T8 as well as lucencies at the level of L1 and T3, suspicious for metastatic disease. The thyroid demonstrates bilateral areas of lo w attenuation and calcification, unchanged. Abdomen: Visualized upper abdominal solid organs appear normal in the early arterial phase of enhanc ement. IMPRESSION: 1. Distal left pulmonary embolism extending into segmental branches of the upper left and lower lobe vasculature. In addition, questionable punctate emboli in the distal branches of the right upper lobe pulmonary arteries. In addition, there is a slight appearance of right heart strain. 2. Unchanged appearance of prominent right effusion as well as mass lesion and mediastinal adenopathy most consistent with known malignancy. The above findings were discussed with Dr. Jeremy Huang on 12/08/2021 at 4:48 PM. CLINICAL RECOMMENDATION STATEMENTS: In patients <35 years with an ITN detected on CT, MRI, or extrathyroidal ultrasound, the Committee re commends further evaluation with dedicated thyroid ultrasound if the nodule is "e1 cm and has no susp icious imaging features, and if the patient has normal life expectancy. In patients "e35 years with an ITN detected on CT, MRI, or extrathyroidal ultrasound, the Committee r ecommends further evaluation with dedicated thyroid ultrasound if the nodule is "e1.5 cm and has no s uspicious imaging features, and if the patient has normal life expectancy. (ACR, 2014) Reviewed by: Carly Pierre MD on 12/08/2021 4:49 PM PST Approved by: Carly Pierre MD on 12/08/2021 4:49 PM PST Station ID: [id number]
[2021-12-08] MEDS ORDERED: APIXABAN 5 MG TABLET PO STA (17:21)
--- NOTE | 2021-12-08 17:48 | XRAY Report ---
PROCEDURE: Post Thoracentesis 1V CXR INDICATIONS: POST THORACENTESIS TECHNIQUE: One view of the chest was acquired. COMPARISON: CT angiogram obtained 12/08/2021. FINDINGS: Small right apical pneumothorax. Markedly decreased size of right pleural effusion. Left lung and ple ural space are clear. IMPRESSION: Small right apical pneumothorax. Marked decreased size of pleural effusion. Reviewed by: Emmanuel Duvall MD on 12/08/2021 4:46 PM [place] Approved by: Emmanuel Duvall MD on 12/08/2021 4:46 PM [place] Station ID: [id number]
[2021-12-08] MEDS ORDERED: iohexoL-300 100 ML VIAL IVP ONE (19:55)
--- NOTE | 2021-12-09 01:15 | XRAY Report ---
PROCEDURE: Chest 2 View X-Ray INDICATIONS: f/u pneumothorax R sided apical TECHNIQUE: 2 view(s) of the chest. COMPARISON: 12/08/2021, 11/23/2021, 09/22/2021, and CT chest dated 12/08/2021. FINDINGS: Surgical changes and devices: Left-sided tunneled port device is unchanged in positioning.. Lungs and pleura: Stable appearance of small right pleural effusion. Patchy right basilar airspace op acities again noted. Medial right upper lobe mass is again noted. Streaky left basilar opacities like ly representing atelectasis. There is a very small residual right apical pneumothorax. Mediastinum: Mediastinal contours are stable. Heart size is normal. Bones and chest wall: No suspicious bony abnormalities. Soft tissues appear unremarkable. IMPRESSION: Small residual right apical pneumothorax. This appears stable to smaller compared to recent chest rad iograph. Persistent small right pleural effusion with compressive atelectasis and persistent right basilar air space opacities. Medial right upper lobe pulmonary mass appears stable. Reviewed by: Boaz Coombs MD on 12/09/2021 1:14 AM PST Approved by: Boaz Coombs MD on 12/09/2021 1:14 AM PST Station ID: [id number]
--- NOTE | 2021-12-09 03:49 | ED Physician Documentation ---
ED Addendum - Addendum Addendum: 12/09/21 03:48 Patient endorsed to me by Dr. Galvez awaiting follow-up x-ray. Patient is satting in the high 90s in the emergency department, states that she uses supplemental oxygen at home and is on 2 L nasal cannula. Comfortable, well-appearing. To repeat chest x-rays are stable here in the emergency department with improvement and/or known worsening of small apical pneumothorax. Patient to follow-up with her oncologist outpatient. Disposition Home condition stable Impression 1 shortness of breath 2. pleural effusion 3. pneumothorax.
[2021-12-09 05:22] VITALS: BP 122/75
--- NOTE | 2021-12-09 07:50 | XRAY Report ---
PROCEDURE: Chest 2 View X-Ray INDICATIONS: monitoring R apical pneumothorax TECHNIQUE: 2 view(s) of the chest. COMPARISON: 12/09/2021 at 1246 hours.. FINDINGS: Surgical changes and devices: Left chest wall Port-A-Cath is stable. Lungs and pleura: Small right apical pneumothorax is stable. Airspace opacification involving the rig ht lung base concerning for pneumonia versus aspiration is stable. Streaky opacities in the left lung base which could represent atelectasis or parenchymal scarring are stable. Mass in the medial aspect of the right upper lung is stable. Mediastinum: Mediastinal contours are normal. Heart size is normal. Bones and chest wall: No suspicious bony abnormalities. Soft tissues appear unremarkable. Multiple mid and lower thoracic spine compression deformities noted resulting in increased thoracic s pine kyphosis. IMPRESSION: Stable small right apical pneumothorax. Reviewed by: Halima Brown MD, PhD on 12/09/2021 7:49 AM PST Approved by: Halima Brown MD, PhD on 12/09/2021 7:49 AM PST Station ID: [id number]
== END 2021-12-09 05:27 | disposition home or self-care (01) ==
LOC: ED 14:22
DX: I26.94 Multiple subsegmental thrombotic pulmonary emboli without acute cor pulmonale (principal); C34.90 Malignant neoplasm of unspecified part of unspecified bronchus or lung; C79.51 Secondary malignant neoplasm of bone; J90 Pleural effusion, not elsewhere classified; I26.99 Other pulmonary embolism without acute cor pulmonale; Z99.81 Dependence on supplemental oxygen; Z79.01 Long term (current) use of anticoagulants
CPT/HCPCS: 32554; 36415; 71045; 71046; 71275; 80048; 83880; 85025; 93005; 96374; 99284; A9270; Q9967

== ENCOUNTER 2021-12-09 14:00 | Outpatient (CLI) | payer MEDICARE, OTHER ==
--- NOTE | 2021-12-09 19:12 | CONSULTATION NOTE ---
Palliative Care Follow Up - Referral Referring Provider: Cat Griggs PA-C Time of Visit: [id number] Referral Reason: Pain of neoplastic origin/Right Pleural Effusion/PE/Met Lung CA - Information Sources Records reviewed: Previous records reviewed History/Review of Systems obtained from: Patient, Family ( Beck) Exam limitations: No limitations - History of Present Illness Update Brief HPI Update: This is a 70-year-old woman with metastatic lung cancer, with known multiple bony and hepatic metastasis. She was scheduled to see me on 12/08/2021 after oncology, but had developed increasing shortness of breath, and notable recurrent right pleural effusion. She did have it drained with relief of symptoms, but also was worked up for PE. She is now on Eliquis 10 mg twice daily for 1 week and decreasing 5 mg twice daily. She is quite exhausted, as they did have a slight pneumothorax on the right, they had to watch with follow-up chest x-rays, did not worsen. Today she is needing more oxygen than previously at 2 L versus 1 L, but is breathing much easier as well as improvement of her pain. Patient still has some mild lower extremity edema, but much improvement as well as the tightness in her abdomen. She has been on low- dose diuretics with good response. She does report her bowels are moving, she is somewhat overwhelmed with the multiple moving parts. She also heard from oncology, that she will receive 1 more chemotherapy and then transition over to osimertinib. Patient is quite realistic in the context of her seriousness of her illness, she is hopeful for least another year. If she has a good response, this is definitely possible. In review of her current regimen, she is taking time-released morphine 60 mg a.m., 60 mg late afternoon, and 90 mg at bedtime. She is doing pregabalin 50 mg 3 times daily, with dexamethasone down to 4 mg daily. She has felt more comfortable and has not needed the oxycodone as frequently, and is continue to titrate back, using it for breakthrough pain only. Patient denies any need for changes in her current regimen. She is to be evaluated tomorrow at radiation for further support for relief of bony met pain. Social History - Living Situation Living arrangement: At home Living Situation: With spouse/s.o. Support System: Patient lives in her lobo home, I am making a home visit in the context recent events of 24 hours. She is to her Beck, they have 2 dogs. 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 This has been a difficult experience for her as she has lost some of her independence as well as her ability to do things that are important to her. Medications/Allergies - Medications Home Medications: Ambulatory Orders Medication Instructions Recorded Confirmed Morphine ER [Morphine Sulfate ER] 30 mg PO .60 AM/60 AFT; 90 PM 11/10/21 12/09/21 Naloxone HCl Nasal [Narcan] 1 spray [place] DAILY PRN 11/10/21 12/09/21 Ondansetron HCl [Zofran] 4 mg PO Q6HR PRN 11/10/21 12/09/21 Oxycodone HCl 20 mg PO Q3HR PRN 11/10/21 12/09/21 Senna [Senokot] 2 tab PO TID PRN 11/10/21 12/09/21 dexAMETHasone [Decadron] 2 mg PO BID 11/10/21 12/09/21 polyethylene glycoL 3350 [Miralax] 17 gm PO DAILY MDD bid 11/15/21 12/09/21 Pregabalin [Lyrica] 50 mg PO TID MDD 4 tabs-2 @ noc as 11/23/21 12/09/21 needed Furosemide [Lasix] 10 mg PO DAILY 11/25/21 12/09/21 Spironolactone [Aldactone] 25 mg PO DAILY 11/25/21 12/09/21 Apixaban [Eliquis] 10 mg PO BID #68 tablet 12/08/21 12/09/21 Omeprazole Magnesium 20 mg PO DAILY 12/10/21 12/10/21 - Allergies Allergies/Adverse Reactions: Allergies Allergy/AdvReac Type Severity Reaction Status Date / Time Sulfa (Sulfonamide Allergy Unknown Verified 12/08/21 14:31 Antibiotics) Review of Systems - Constitutional Constitutional: reports: Fatigue (persistent; worsened with recent ED stay), Weakness (improved; ambulating better), Weight loss - Eyes Eyes: reports: Vision loss, Corrective lenses - Ears, Nose & Throat Ears, Nose & Throat: reports: Tinnitus, Dry mouth, Other (taste changes) - Cardiovascular Cardiovascular: reports: Edema (less than 1+ bilat up to mid calf), Exertional dyspnea (some improvement with thoracentesis and oxygen), Decr. exercise tolerance - Respiratory Respiratory: reports: Cough, Orthopnea, SOB at rest (improved with thoracentesis; had escalated in previous 24 hours), SOB with exertion. denies: Wheezing - Gastrointestinal Gastrointestinal: reports: Nausea (intermittent; low grade and persistent), Bloating, Early satiety. denies: Constipation (following bowel program currently controlled) - Genitourinary Genitourinary: reports: Incontinence (improved) - Musculoskeletal Musculoskeletal: reports: Muscle pain, Back pain, Muscle aches, Stiffness, Limited range of motion, Muscle weakness, Assistive devices (needing walker for pain relief/offload and weakness) - Integumentary Integumentary: reports: Dryness - Neurological Neurological: reports: General weakness, Numbness, Memory problems (mild with escalating medications), Abnormal gait - Psychiatric Psychiatric: reports: Anxiety (improved) - Endocrine Endocrine: reports: Intolerance to cold - Hematologic/Lymphatic Hematologic/Lymph: reports: Blood clots (new PE) - All Other Systems All Other Systems: reports: Reviewed and negative Physical Exam - Vital Signs Temperature: 97.3 C Pulse Rate: 68 Respiratory Rate: 20 O2 Saturation: 94 (on 2 liters) Blood Pressure: 112/74 - Physical Exam General Appearance: positive: No acute distress, Alert, Other (appears exhausted; up most of night) Eyes Bilateral: positive: Normal inspection, No scleral icterus ENT: positive: No signs of dehydration Neck: positive: Trachea midline Cardiovascular: positive: Regular rate & rhythm Respiratory: positive: Other (diminished RLL in base only;). negative: No respiratory distress (improved but still effort), Wheezes, Rales, Rhonchi Abdomen: positive: Distended (improved; last appointment was taut), Other (rounded; less firm) Skin: positive: Pallor, Dryness Extremities: positive: Pedal edema. negative: Full ROM Neurologic/Psychiatric: positive: Oriented x3, Mood/affect nml, Weakness Palliative Care - POLST Patient has POLST: Yes POLST Status: DNR, Selective Treatment Pain: Pain improved, Location (back and rib pain with thorancentesis), Severity (currently well controlled) Tiredness/Fatigue: Moderate (4-6) Drowsiness/Sedation: Mild (1-3) Nausea: Moderate (4-6) Anorexia: Mild (1-3) Dyspnea: Moderate (4-6) (improved) Depression: Mild (1-3) Anxiety: Moderate (4-6) Feelings of wellbeing/Perceived Quality of Life: Fair Sleep: Sleep improved Constipation: Yes, Opoid induced, Managed Performance Status: Patient is limited mostly by her dyspnea, though also has difficulty with twisting and weightbearing with pain. She is more ambulatory with her walker, but is frustrated with her limitations particularly able to participate in activities she usually is used to. - Palliative Care Discussion: Patient is continuing to have a series of unfortunate events, I did need urgent thoracentesis and now follow-up on PE. 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 Concerned though patient with continued complications, is trying to stay hopeful, and is hoping for the best and some quality and quantity of time. At this point is still choosing to move forward with treatment plan, has pending radiation oncology appointment Monday. Continues to weigh benefits and burdens in the context of quality of life as well as ability to be independent.Is feeling somewhat better with pain better controlled, and now with dyspnea at rest is more comfortable. Results - Lab Results Lab results reviewed: Yes Impression and Recommendations - Palliative Care Impression: This is a 70-year-old woman with metastatic lung cancer, with recurrent right pleural effusion, now no PE. She does have bony and hepatic mets, is expected to have 1 more round of chemotherapy and then transition over to osimertinib. Patient's pain is better controlled, dyspnea is improved with thoracentesis, and lower extremity edema managed. Palliative care continue provide support for pain and symptom management, coordination of care, and anticipatory guidance Recommendations/Counseling Done: 1. Pain of neoplastic origin. This is multifactorial, including visceral, bone pain, mass-effect of right recurrent pleural effusion, mediastinal mets with improvement of pain after thoracentesis. Patient is currently taking time- released morphine 60 mg a.m., late afternoon and 90 mg at bedtime. Pregabalin currently is at 50 mg 3 times daily, is currently taking dexamethasone 4 mg total. Patient is currently doing well with the decreased need of her oxycodone for breakthrough pain, awaiting if candidate for radiation. 2. Constipation. Patient is struggling with goal for bowel movement daily, reinforced information secondary to opioid-induced constipation need to be more diligent on a bowel program. She is doing quite well and titrating appropriately. 3. Hypoxia. This is multifactorial, she did have a another thoracentesis, unfortunately now she has a PE. She has increased oxygen needs but is getting them at 2 L, provided oximeter to monitor accordingly. She has been started on Eliquis, this was not on their plan, will explore if Xarelto more affordable option. Information taken for preauthorization or follow-up on formulary. Counseling provided on side effects, urgent need to seek evaluation for hematuria or rectal bleeding, or dark tarry stools. 4. Nausea. I suspect this is multifactorial, patient now increased risk with dexamethasone and Eliquis, given low-grade nausea we will go ahead and initiate omeprazole 20 mg daily. This may be of support for patient in the context of her symptoms. 5. Metastatic lung cancer. Did clarify treatment plan and appointments with Dr. Griffin, patient received chemotherapy 1 more time, and then transition to osimertinib. There may be some time delay in getting approved, but Dr. Arroyo would like her to start as soon as possible when available. She will receive teaching next week. 5. Advanced care planning. Patient does have a completed POLST with DNR and DNI and selective treatments, she is currently pursuing treatment, looking to extend for both quantity and quality of life. We will continue to monitor and provide anticipatory guidance. 45 minutes with greater than 50% of this done in counseling regarding new medications, pain management, coordination of care with oncology team and anticipatory guidance
== END 2021-12-09 14:01 | disposition home or self-care (01) ==
LOC: PC 14:00
PROVIDERS: ATTEND Nurse Practitioner Adult Health
DX: Z51.5 Encounter for palliative care (principal); G89.3 Neoplasm related pain (acute) (chronic); C80.1 Malignant (primary) neoplasm, unspecified; C78.00 Secondary malignant neoplasm of unspecified lung; C78.7 Secondary malignant neoplasm of liver and intrahepatic bile duct; C79.51 Secondary malignant neoplasm of bone; Z79.899 Other long term (current) drug therapy; K59.03 Drug induced constipation; T40.2X5A Adverse effect of other opioids, initial encounter; R09.02 Hypoxemia; I26.99 Other pulmonary embolism without acute cor pulmonale; Z79.01 Long term (current) use of anticoagulants; R11.0 Nausea; Z66 Do not resuscitate
CPT/HCPCS: 99215

== ENCOUNTER 2021-12-15 10:34 | Outpatient (CLI) | payer MEDICARE, OTHER ==
--- NOTE | 2021-12-15 18:22 | CONSULTATION NOTE ---
Palliative Care Follow Up - Referral Referring Provider: Dr. Derrell Griffin Time of Visit: 1045 45 min Referral setting: [facility] [place] Reason: Pain of neoplastic origin/Met Lung CA/Recurrent right pleural effusion - Information Sources Records reviewed: Previous records reviewed History/Review of Systems obtained from: Patient, Family ( Beck present) Exam limitations: No limitations - History of Present Illness Update Brief HPI Update: This is a 70-year-old woman with metastatic lung cancer, with known multiple bony and hepatic metastases. She is doing much better today, her symptom burden has decreased, her pain is tolerable with very little breakthrough pain medication needed, scheduled for radiation fraction on lumbar spine 12/27, and is moving as well as ambulating better.She is here to get her second round of carboplatinum/etoposide and atezolizumab. She did receive her chemo teaching on osimertinib with Cat Griggs PA-C yesterday, follow-up it has been approved but with large co-pay $3500, will find out end of week and move forward with [facility] pharmacy. She has had malignant pleural effusion, and recently diagnosed PE. She had a thoracentesis last performed on , she only has minimal decreased breath sounds in her right lower lobe. Her oxygen saturations are better, and is breathing easier as well as pain improved.Did follow-up on Xarelto it is covered versus Eliquis, will follow-up with Dr. Griffin if this is acceptable alternative. Patient presents in good spirits, does appear to be resting better, pain is better controlled, dyspnea managed. Is feeling somewhat more hopeful. Social History - Living Situation Living arrangement: At home Living Situation: With spouse/s.o. Support System: Patient lives at home with her lobo , they have 2 dogs. 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 This is a difficult experience for her to have lost some of her independence as well as ability to do things that are important for her. Medications/Allergies - Medications Home Medications: Ambulatory Orders Medication Instructions Recorded Confirmed Morphine ER [Morphine Sulfate ER] 30 mg PO .60 AM/60 AFT; 90 PM 11/10/21 12/16/21 Naloxone HCl Nasal [Narcan] 1 spray [place] DAILY PRN 11/10/21 12/16/21 Oxycodone HCl 20 mg PO Q3HR PRN 11/10/21 12/16/21 Senna [Senokot] 2 tab PO TID PRN 11/10/21 12/16/21 dexAMETHasone [Decadron] 3 mg PO DAILY 11/10/21 12/16/21 ondansetron HCL [Zofran] 4 mg PO Q6HR PRN 11/10/21 12/16/21 polyethylene glycoL 3350 [Miralax] 17 gm PO DAILY MDD bid 11/15/21 12/16/21 Pregabalin [Lyrica] 50 mg PO TID MDD 4 tabs-2 @ noc as 11/23/21 12/16/21 needed Spironolactone [Aldactone] 25 mg PO DAILY 11/25/21 12/16/21 Omeprazole Magnesium 20 mg PO DAILY 12/10/21 12/16/21 Apixaban [Eliquis] 5 mg PO BID 12/16/21 12/16/21 - Allergies Allergies/Adverse Reactions: Allergies Allergy/AdvReac Type Severity Reaction Status Date / Time Sulfa (Sulfonamide Allergy Unknown Verified 12/08/21 14:31 Antibiotics) Review of Systems - Constitutional Constitutional: reports: Fatigue (improved over last several days), Weakness (improved; ambulating better; pushing self), Weight stable - Eyes Eyes: reports: Vision loss, Corrective lenses - Ears, Nose & Throat Ears, Nose & Throat: reports: Tinnitus, Dry mouth, Other (taste changes). denies: Mouth lesions - Cardiovascular Cardiovascular: reports: Edema (trace to 1 + up mid calf; improved), Exertional dyspnea (some improvement with thoracentesis and oxygen), Decr. exercise tolerance - Respiratory Respiratory: reports: SOB with exertion. denies: Cough, Wheezing, SOB at rest (improved with thoracentesis; continues to be manageable) - Gastrointestinal Gastrointestinal: reports: Bloating (improved), Early satiety (eating small frequent feedings). denies: Constipation (following bowel program currently controlled) - Musculoskeletal Musculoskeletal: reports: Muscle pain, Back pain, Muscle aches, Stiffness, Limited range of motion, Muscle weakness, Assistive devices (needing walker for pain relief/offload and weakness; has been trying short distances without) - Integumentary Integumentary: reports: Dryness, Hair changes (thinning) - Neurological Neurological: reports: General weakness, Numbness, Memory problems (mild with escalating medications), Abnormal gait - Psychiatric Psychiatric: denies: Anxiety (improved) - Endocrine Endocrine: reports: Intolerance to cold - Hematologic/Lymphatic Hematologic/Lymph: reports: Blood clots (new PE; on Eliquis but Xarlto covered by insurance; will reach out to oncology) - All Other Systems All Other Systems: reports: Reviewed and negative Physical Exam - Vital Signs Temperature: 36.9 C Pulse Rate: 78 Respiratory Rate: 16 O2 Saturation: 98 (2 liters) Blood Pressure: 116/67 - Physical Exam General Appearance: positive: No acute distress, Alert Eyes Bilateral: positive: Normal inspection, No scleral icterus ENT: positive: No signs of dehydration Neck: positive: Trachea midline Cardiovascular: positive: Regular rate & rhythm Respiratory: positive: Other (diminished RLL in base only;). negative: No respiratory distress (improved but still effort), Wheezes, Rales, Rhonchi Abdomen: positive: Distended (improved;), Other (rounded; less firm) Skin: positive: Pallor, Dryness Extremities: positive: Pedal edema. negative: Full ROM Neurologic/Psychiatric: positive: Oriented x3, Mood/affect nml, Weakness Palliative Care - POLST Patient has POLST: Yes POLST Status: DNR, Selective Treatment Pain: Pain improved, Location (thoracic and lower back area; new pain in sternum), Severity (1/10 worse with movement), Comment (on morphine 60 am 1400 90 mg at bedtime; pregabilin 50 mg tid) Tiredness/Fatigue: Mild (1-3) Drowsiness/Sedation: Mild (1-3) Nausea: Mild (1-3) Anorexia: Mild (1-3) Dyspnea: Mild (1-3) Depression: Mild (1-3) Anxiety: Mild (1-3) Feelings of wellbeing/Perceived Quality of Life: Good, Acceptable, Improved Sleep: Sleep improved Constipation: Yes, Opoid induced, Managed Performance Status: Patient is limited with weightbearing with pain, but is much more ambulatory than she was. She has been walking with a walker and some without. She is frustrated with her limitations but is able to manage her ADLs. - Palliative Care Discussion: Patient is feeling much more hopeful, starting to feel better, pain is controlled her dyspnea has not returned to the severity it was. She is finishing her second round of chemotherapy, and is set for her new oral. They are waiting final insurance approval on the copayments for support. They are both in good spirits, they feel like things are little more stable than they have been. Continuing to focus on hoping for the best, though is quite realistic about the seriousness of her illness. She does look much more better and relaxed today. Results - Lab Results Lab results reviewed: Yes Impression and Recommendations - Palliative Care Impression: This is a lobo 70-year-old woman with metastatic lung cancer, with recent right pleural effusion and diagnosed PE. She does have known bony and hepatic mets, is currently receiving second round of chemotherapy then to transition over to osimertinib. Patient's pain is controlled, dyspnea is improved, no symptoms of acute recurrence of pleural effusion. Lower extremity edema improved. Palliative care continue to provide support for pain and symptom management, coordination of care and anticipatory guidance Recommendations/Counseling Done: 1. Pain of neoplastic origin. This is multifactorial, including visceral, bone pain, mass-effect of right recurrent pleural effusion, mediastinal mets,, currently remains improved with pain after thoracentesis. Patient's current regimen is time-released morphine 60 mg a.m., 60 mg late afternoon and 90 mg at bedtime. She is doing pregabalin currently at 50 mg 3 times daily, and de xamethasone 4 mg total, but will decrease to 3 mg after chemo starting Monday. Patient is due to have fraction of radiation 12/26 to lumbar spine. We will continue to decrease pain medication as indicated, patient rarely needing oxycodone at this time. 2. Constipation. Patient is having regular bowel movements, titrating appropriately. No changes needed. 3. Hypoxia. This is multifactorial, is continue to improve after thoracentesis. She also has now known PE, started on Eliquis, spoke with Dr. Griffin, Lenore excepted as alternative, will order with next prescription. They do have oximeter, will continue to titrate with activity to keep oxygen levels above 90%. 4. Metastatic lung cancer. Did follow-up with [facility] regarding symptomatic care neb, has been approved but awaiting if can get support for copayment of $3500. She is to start as soon as possible when available. She has received her teaching. 5. Lower extremity edema. Patient's kidney function is looking good, lower extremity edema is improved, will discontinue the furosemide and continue the spironolactone, and monitor accordingly. 6. Advanced care planning. Patient does have POLST in place with DN AR/DNI and selective treatments. Patient is continue to improve, is feeling quite hopeful, goal is to try and get at least "a year", will continue to support patient quality of life issues, in the context of hoping both for quality and quantity as an outcome related to her treatment. 45 minutes with review of labs, oncology notes, ED records, coordination of care with oncology team, counseling [id number] with patient and regarding pain and symptom management and anticipatory guidance
== END 2021-12-15 10:35 | disposition home or self-care (01) ==
LOC: PC 10:34
PROVIDERS: ATTEND Nurse Practitioner Adult Health
DX: Z51.5 Encounter for palliative care (principal); C34.90 Malignant neoplasm of unspecified part of unspecified bronchus or lung; G89.3 Neoplasm related pain (acute) (chronic); C78.7 Secondary malignant neoplasm of liver and intrahepatic bile duct; C79.51 Secondary malignant neoplasm of bone; J90 Pleural effusion, not elsewhere classified; I26.99 Other pulmonary embolism without acute cor pulmonale; K59.00 Constipation, unspecified; R09.02 Hypoxemia; R60.0 Localized edema; Z66 Do not resuscitate; Z79.01 Long term (current) use of anticoagulants
CPT/HCPCS: 99215

== ENCOUNTER 2021-12-29 14:20 | Outpatient (CLI) | payer MEDICARE, OTHER ==
--- NOTE | 2021-12-29 16:59 | CONSULTATION NOTE ---
Palliative Care Follow Up - Referral Referring Provider: Cat Griggs PA-C Time of Visit: 1415 45 minutes Referral setting: MAC Referral Reason: Pain of neoplastic origin/Met Lung CA/PE - Information Sources Records reviewed: Previous records reviewed History/Review of Systems obtained from: Patient, Family ( Beck present) Exam limitations: No limitations - History of Present Illness Update Brief HPI Update: This is a 71-year-old woman with metastatic lung cancer, with known multiple bony and hepatic mets. She has received her radiation fraction to the lumbar spine 12/27 with already some improvement with decreased oxycodone use. She has completed 2 rounds of carboplatinum/etoposide and Atezolizumab, With good clinical response. Her pain has continued decrease, she has not reaccumulated her right pleural effusion, she is ambulating better, and is better able to tolerate weightbearing. She is awaiting her dose of osimertinib, just got a letter it was approved expected to show up in the next week. Her oxygen sats have been good off of her oxygen at home, and has been able to do activity witho ut dropping. Finds it less distressing to have to wear the oxygen, at current present her O2 sats are 98% at rest, pulse 88, and only decreased to 95% with conversation.Her breath sounds are good on the right side, only diminished in the base, no crackles or wheezes or rales, and is able to take a full breath. Patient also describes improvement in pain, the right band across the thoracic area has improved, she still has some residual pain in her left side. Pain is mostly with movement or activity, 0/10 at rest. We did discuss given patient's continued improvement, would like to continue to try and titrate back medications to be able to improve patient's fatigue and pill burden.Patient is appropriately concerned regarding her prognosis, she does recognize the seriousness of her illness, but would like to know more in the context of what to expect, she is seeing oncology in follow-up, deferred her to Dr. Griffin, but given her clinical response, today does look quite hopeful. Social History - Living Situation Living arrangement: At home Living Situation: With spouse/s.o. Support System: Patient lives at home with her lobo , they have 2 big dogs. 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 She is feeling more positive as she has regained some of her independence, is hopeful to be more functional in the future. Medications/Allergies - Medications Home Medications: Ambulatory Orders Medication Instructions Recorded Confirmed Naloxone HCl Nasal [Narcan] 1 spray B[place]ON DAILY PRN 11/10/21 12/29/21 Oxycodone HCl 20 mg PO Q3HR PRN 11/10/21 12/29/21 Senna [Senokot] 4 tab PO TID PRN 11/10/21 12/29/21 dexAMETHasone [Decadron] 2 mg PO DAILY 11/10/21 12/29/21 ondansetron HCL [Zofran] 4 mg PO Q6HR PRN 11/10/21 12/29/21 Pregabalin [Lyrica] 50 mg PO TID MDD 4 tabs-2 @ noc as 11/23/21 12/29/21 needed Spironolactone [Aldactone] 25 mg PO DAILY 11/25/21 12/29/21 Omeprazole Magnesium 20 mg PO DAILY 12/10/21 12/29/21 Morphine ER 60 mg PO TID 12/29/21 12/29/21 Rivaroxaban [Xarelto] 20 mg PO DAILY 12/29/21 12/29/21 - Allergies Allergies/Adverse Reactions: Allergies Allergy/AdvReac Type Severity Reaction Status Date / Time Sulfa (Sulfonamide Allergy Unknown Verified 12/29/21 15:25 Antibiotics) Review of Systems - Constitutional Constitutional: reports: Fatigue (improving), Weakness - Eyes Eyes: reports: Vision loss, Corrective lenses - Ears, Nose & Throat Ears, Nose & Throat: reports: Tinnitus, Dry mouth, Other (taste changes). denies: Mouth lesions - Cardiovascular Cardiovascular: reports: Edema (trace to 1 + up mid calf; improved), Exertional dyspnea (some improvement with thoracentesis and oxygen), Decr. exercise toleran ce - Respiratory Respiratory: reports: SOB with exertion. denies: SOB at rest - Gastrointestinal Gastrointestinal: reports: Constipation (Perceives having more bloating with the MiraLAX, continues to struggle with constipation, currently on 4 senna 3 times daily), Bloating (improved), Early satiety (eating small frequent feedings) - Musculoskeletal Musculoskeletal: reports: Muscle pain, Back pain, Muscle aches, Stiffness, Limited range of motion, Muscle weakness, Assistive devices (needing walker now because of "pulled" muscle; otherwise was walking independently) - Integumentary Integumentary: reports: Dryness, Hair changes (thinning) - Neurological Neurological: reports: General weakness, Numbness, Memory problems (mild related to medications but improved), Abnormal gait - Psychiatric Psychiatric: reports: Anxiety (improved related to prognosis) - Endocrine Endocrine: reports: Intolerance to cold - Hematologic/Lymphatic Hematologic/Lymph: reports: Blood clots (new PE; on Eliquis but Xarlto covered by insurance due to transition) - All Other Systems All Other Systems: reports: Reviewed and negative Physical Exam - Vital Signs Temperature: 36.5 C Pulse Rate: 82 Respiratory Rate: 18 O2 Saturation: 97 Blood Pressure: 123/68 - Physical Exam General Appearance: positive: No acute distress, Alert, Other Eyes Bilateral: positive: Normal inspection ENT: positive: No signs of dehydration Neck: positive: Trachea midline Cardiovascular: positive: Regular rate & rhythm Respiratory: positive: No respiratory distress, Breath sounds nml, Diminished in bases, Other (hypoxia resolved; will keep oxygen for the short term). negative: Wheezes, Rales, Rhonchi Abdomen: positive: Soft, Distended (mild) Skin: positive: Pallor, Dryness Extremities: positive: Pedal edema (left greater than right; trace to 1+) Neurologic/Psychiatric: positive: Oriented x3, Mood/affect nml, Weakness Palliative Care - POLST Patient has POLST: Yes POLST Status: DNR, Selective Treatment Pain: Pain improved, Comment (see HPI; Currently on pregabalin 50 mg 3 times daily, MS Contin 60 mg a.m. 60 mg 1400, 90 mg bedtime, dexamethasone 3 mg daily) Tiredness/Fatigue: Moderate (4-6) Anorexia: Weight loss (61.4) Feelings of wellbeing/Perceived Quality of Life: Fair, Improved Sleep: Sleeps well, Sleep improved Constipation: Yes, Opoid induced, Unmanaged Performance Status: Patient has continued with improvement in functional status, has been able to vacuum, participate in household tasks. She is independent in her ADLs, was doing fairly well till she pulled a muscle in her right groin. She does feel like this is improving as well. - Palliative Care Discussion: Patient is feeling somewhat more hopeful, her symptoms are better controlled, she is to start her new treatment. She appropriately has questions regarding prognosis, recognizing she does have serious illness. Deferred her to oncology, as it is noted treatment is palliative in nature. She continues to hope for the best, has had good response with treatment so far. She has had many complications along the way, has been quite resilient regarding this. We will continue to provide palliative care support both for symptom management and psychosocial. Results - Lab Results Lab results reviewed: Yes Lab and Imaging Results: Hemoglobin 8.8, WBC 24.2, neutrophil 22.5 suspect related to dexamethasone and recent radiation treatment. Impression and Recommendations - Palliative Care Impression: This is a lobo 71-year-old woman with metastatic lung cancer with mets to the bone and liver. She has had recurrent right pleural effusion, and diagnosed with PE, currently appears to be spotting well to treatment. Patient's pain is controlled, dyspnea improved, patient no longer hypoxic. Palliative care continue to provide support for pain and symptom management, coordination of care and anticipatory guidance. Recommendations/Counseling Done: 1. Pain of neoplastic origin. This is multifactorial, including visceral, bone pain, mediastinal mets, but is having improvement overall. Will trial tapering medications, patient's current regimen is time-released morphine 60 mg a.m., 60 mg late afternoon and 90 at bedtime, will transition to 60 mg 3 times daily. We will continue with the pregabalin currently at 50 mg 3 times daily, will decrease the dexamethasone to 2 mg and taper off over the next few weeks. Patient already having response to fraction of radiation to the lumbar spine. This may be an option in the future also for other areas of discomfort. Patient is rarely needing oxycodone at this time, continue to monitor. 2. Constipation. Patient is having more difficulty with constipation, perceives MiraLAX is causing more bloating. Will drop the MiraLAX, continue the senna 4 tabs 3 times daily, can use mag citrate for rescue. Also encouraged to add prunes or prune juice for further bowel support. 3. Hypoxia. This is multifactorial, now has improved after thoracentesis, has known PE and will be transitioned to Xarelto. Patient does not need oxygen at this point in time, will keep it just for the time being, but patient will mon itor for recurrent symptoms. She does have an oximeter. 4. Metastatic lung cancer. She is to start her oral treatment next week, will continue to monitor for side effects. Patient has had good response thus far to her chemotherapy. 5. Lower extremity edema. Patient's kidney function continues look improved, though continues with persistent lower extremity edema, will continue with the spironolactone and monitor accordingly. 6. Advanced care planning. Patient does have a POLST in place with DN AR/DNI and selective treatments. Patient continues to improve, encouraged to continue to feel quite hopeful hoping for the best, she is hoping to have more information regarding prognosis. We will continue to support patient around quality of life issues, patient's ultimate goal is end of life to have a at home. Will monitor and transition to hospice appropriately. 45 minutes with review of chart, oncology notes, scan, [id number] for management of pain and symptom management, titration of medications, coordination of care. Xarelto Rx sent in. Will need PA for pregabalin when ordered again.
== END 2021-12-29 14:21 | disposition home or self-care (01) ==
LOC: PC 14:20
PROVIDERS: ATTEND Nurse Practitioner Adult Health
DX: Z51.5 Encounter for palliative care (principal); C34.90 Malignant neoplasm of unspecified part of unspecified bronchus or lung; G89.3 Neoplasm related pain (acute) (chronic); C78.7 Secondary malignant neoplasm of liver and intrahepatic bile duct; C79.51 Secondary malignant neoplasm of bone; K59.00 Constipation, unspecified; I26.99 Other pulmonary embolism without acute cor pulmonale; R09.02 Hypoxemia; Z79.899 Other long term (current) drug therapy; R60.0 Localized edema; Z66 Do not resuscitate
CPT/HCPCS: 99215

== ENCOUNTER 2022-01-19 14:15 | Outpatient (CLI) | payer MEDICARE, OTHER ==
--- NOTE | 2022-01-19 17:04 | CONSULTATION NOTE ---
Palliative Care Follow Up - Referral Referring Provider: Cat Griggs PA-C Time of Visit: 8003-2302 Referral setting: Home Referral Reason: Pain of neoplastic origin/Constipation/Met Lung CA - Information Sources Records reviewed: Previous records reviewed History/Review of Systems obtained from: Patient, Family ( Beck present) Exam limitations: No limitations - History of Present Illness Update Brief HPI Update: This is a lobo 71-year-old woman with metastatic lung cancer, with known multiple bony and hepatic mets. She has received radiation fracture to her lumbar spine 12/27, continues to have improvement in her pain. She is currently on osimertinib initiated 01/04/2022, and does appear to be tolerating fairly well. Her lungs are clear today, oxygen sats are good, pain is improving, she just finished off her dexamethasone. Her functional status continues to improve as well, she vacuum, is ambulating without any difficulty, she still does have some pain from sitting to standing, describes band with tightness across, currently is on MS Contin 60 mg 3 times daily, pregabalin 50 mg 3 times daily, most problematic symptom has actually been bloating and gas. She had some mild improvement with the simethicone and stopping of the MiraLAX, but is still finding it difficult to get comfortable in the context of abdominal fullness. She does currently weigh 126 about, she is less about 10 pounds overall, is doing better with eating though is not eating the amount previously. She is walking without a walker, and has initiated the treadmill. Social History - Living Situation Living arrangement: At home Living Situation: With spouse/s.o. Support System: She lives with her lobo Beck, they have 2 big dogs. 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 She is concerned about her lack of resources as far as caregiving in the future for when she declines, they do not have family support in the area. Medications/Allergies - Medications Home Medications: Ambulatory Orders Medication Instructions Recorded Confirmed Naloxone HCl Nasal [Narcan] 1 spray [place]ON DAILY PRN 11/10/21 01/19/22 Oxycodone HCl 20 mg PO Q3HR PRN 11/10/21 01/19/22 Senna [Senokot] 4 tab PO TID PRN 11/10/21 01/19/22 ondansetron HCL [Zofran] 4 mg PO Q6HR PRN 11/10/21 01/19/22 Pregabalin [Lyrica] 50 mg PO TID MDD titrating to bid 11/23/21 01/19/22 Spironolactone [Aldactone] 12.5 mg PO DAILY 11/25/21 01/19/22 Morphine ER 60 mg PO TID 12/29/21 01/19/22 Rivaroxaban [Xarelto] 20 mg PO DAILY 12/29/21 01/19/22 Metoclopramide [Reglan] 5 mg PO TID PRN 01/19/22 01/19/22 - Allergies Allergies/Adverse Reactions: Allergies Allergy/AdvReac Type Severity Reaction Status Date / Time Sulfa (Sulfonamide Allergy Unknown Verified 12/29/21 15:25 Antibiotics) Review of Systems - Constitutional Constitutional: reports: Fatigue (improving), Weakness, Weight stable - Eyes Eyes: reports: Vision loss, Corrective lenses - Ears, Nose & Throat Ears, Nose & Throat: reports: Tinnitus, Dry mouth, Other (taste changes). denies: Mouth lesions - Cardiovascular Cardiovascular: reports: Edema (almost resolved), Decr. exercise tolerance (now able to do household tasks; starting on treadmill; not needing walker) - Respiratory Respiratory: reports: SOB with exertion. denies: SOB at rest - Gastrointestinal Gastrointestinal: reports: Constipation ( currently on 4 senna 3 times daily; mag oxide 400 mg; simethicone), Nausea (with constipation), Bloating (improved), Early satiety (eating small frequent feedings). denies: Reflux/heartburn - Musculoskeletal Musculoskeletal: reports: Muscle pain, Back pain, Muscle aches, Stiffness, Limited range of motion, Muscle weakness - Integumentary Integumentary: reports: Dryness, Hair changes (alopecia; self conscious) - Neurological Neurological: reports: General weakness, Numbness, Abnormal gait - Psychiatric Psychiatric: reports: Anxiety (improved related to prognosis) - Endocrine Endocrine: reports: Intolerance to cold - Hematologic/Lymphatic Hematologic/Lymph: reports: Blood clots (new PE; xarelto no s/s travon bleeding) - All Other Systems All Other Systems: reports: Reviewed and negative Physical Exam - Vital Signs Temperature: 97.3 C Pulse Rate: 77 Respiratory Rate: 18 O2 Saturation: 98 (ra @ rest 100% with ambulation) Blood Pressure: 128/78 - Physical Exam General Appearance: positive: No acute distress, Alert, Cachetic Eyes Bilateral: positive: Normal inspection ENT: positive: No signs of dehydration Neck: positive: Trachea midline Cardiovascular: positive: Regular rate & rhythm Respiratory: positive: No respiratory distress, Breath sounds nml, Diminished in bases, Other (hypoxia resolved; will keep oxygen for the short term until after next appt). negative: Wheezes, Rales, Rhonchi Abdomen: positive: Soft, Distended (mild) Skin: positive: Pallor, Dryness Extremities: negative: Pedal edema Neurologic/Psychiatric: positive: Oriented x3, Mood/affect nml, Weakness (improved; gait steady) Palliative Care - POLST Patient has POLST: Yes POLST Status: DNR, Selective Treatment Pain: Pain improved Feelings of wellbeing/Perceived Quality of Life: Good, Acceptable, Improved Sleep: Sleeps well Constipation: Yes, Opoid induced, Intermittent constipation Performance Status: Anxious status continues to improve, patient able to do household tasks is independent in ADLs, ambulating fairly good distances. No longer needs walker, and has started working on the treadmill. - Palliative Care Discussion: Patient has been aware of the seriousness of her illness, but are hoping for the best. Patient has done well so far with treatment, and appears clinically to continue to improve.She has been exploring end-of-life planning, is wondering about resources that she would like to at home, but does not want to put undue distress or stress on her Beck. We discussed the natural course of dying is usually like a car running out of gas, with time to plan, when she no longer is benefiting from treatment or chooses not to continue with treatment, would make a referral to hospice. Patient also could have complication of her cancer or treatment, this too can be a impetus for transition to hospice. We discussed resources that are currently available, limitations because of Covid, and support patient can receive from hospice though it is not residential care. They did walk there uncle through this, though his decline was quite quick. Impression and Recommendations - Palliative Care Impression: This is a lobo 71-year-old woman with metastatic lung cancer with mets to the bone and liver. She currently presents with no signs or symptoms of recurrent pleural effusion, does appear to be responding well to treatment clinically. Patient's pain is controlled, dyspnea improved patient no longer hypoxic. Patient continues to struggle with bloating and constipation, will continue to try and adjust meds as this is significant quality of life issue for her. Her strength continues to improve, continues to benefit from support of palliative care. Palliative care for pain and symptom management, coordination of care and anticipatory guidance Recommendations/Counseling Done: 1. Pain of neoplastic origin. This is multifactorial, including visceral, bone pain, mediastinal mets but is having improvement overall. Has not needed any breakthrough pain medication, continues with MS 60 mg 3 times daily, most pain is elicited with movement or pressure, twisting, weightbearing. Patient on pregabalin 50 mg 3 times daily, will trial decreasing to twice daily, has completed dexamethasone taper. We will continue to make changes incrementally as to better find balance of the sedation, fatigue, and pain relief. 2. Constipation. Patient continues to struggle with constipation, did discontinue MiraLAX with some improvement in bloating, but also initiated simethicone. She is doing the senna 4 tabs 3 times a day, using mag citrate 400 mg daily for support, patient does describe gastric stasis. We will go ahead and initiate metoclopramide 5 mg 3 times daily to see if this improves, as she does also get nausea with constipation. 3. Hypoxia. This is since resolved. Patient has not needed oxygen at this point in time, will send back after next appointment with oncology if labs in good range. Patient does have an oximeter. 4. Metastatic lung cancer. Patient has started on her oral treatment, does not appear to have any significant side effects yet, will continue to monitor. Patient clinically continues to respond well to treatment. 5. Lower extremity edema. Patient's kidney function continues look improved, will decrease her spironolactone to 12.5 mg, as she has minimal to little swell ing and is using compression stockings with good response. 6. Advanced care planning. Patient melissa best with preplanning and information, addressed questions regarding end-of-life planning, support, residential care, and expectations of what this may look like. Patient continues to feel quite hopeful, would like to have a chance to do some short trips with their RV, given patient's on oral therapy, most likely would easily be able to do this. We will continue to monitor and transition to hospice when appropriate. Patient doing quite well and in good spirits today 7. Alopecia. Patient is having some feelings regarding body image, did discuss recommending at least going for a consult regarding wig, provided local resources 8 mostly, [phone]. 60 minutes with greater than 50% of this done in counseling regarding goals of care, pain and symptom management, management of constipation and bloating, and anticipatory guidance.
== END 2022-01-19 14:16 | disposition home or self-care (01) ==
LOC: PC 14:15
PROVIDERS: ATTEND Nurse Practitioner Adult Health
DX: Z51.5 Encounter for palliative care (principal); C34.90 Malignant neoplasm of unspecified part of unspecified bronchus or lung; G89.3 Neoplasm related pain (acute) (chronic); C78.7 Secondary malignant neoplasm of liver and intrahepatic bile duct; C78.1 Secondary malignant neoplasm of mediastinum; C79.51 Secondary malignant neoplasm of bone; K59.03 Drug induced constipation; T40.2X5A Adverse effect of other opioids, initial encounter; R09.02 Hypoxemia; R60.0 Localized edema; L65.9 Nonscarring hair loss, unspecified; Z66 Do not resuscitate
CPT/HCPCS: 99350

== ENCOUNTER 2022-02-09 08:30 | Outpatient (CLI) | payer MEDICARE, OTHER ==
--- NOTE | 2022-02-09 17:01 | CONSULTATION NOTE ---
Palliative Care Follow Up - Referral Referring Provider: Cat Griggs PA-C Time of Visit: 0845 60 min Referral setting: [facility] [place] Reason: Persistent nausea/Pain of neoplastic origin/Met Lung CA - Information Sources Records reviewed: Previous records reviewed History/Review of Systems obtained from: Patient, Family ( Beck) Exam limitations: No limitations - History of Present Illness Update Brief HPI Update: This is a lobo 71-year-old woman with metastatic lung cancer, with known multiple bony and hepatic mets. She is currently on osimertinib, initiated 01/04/2022, has been having persistent nausea. We have trialed scheduled ondansetron 3 times daily, adding metoclopramide which has helped with c onstipation 5 mg half hour before meals 3 times daily, had tried the prochlorperazine without any response, as well is now added dexamethasone 2 mg daily x2 days, up from 1 mg. Patient reports "waves" fluctuating of nausea, has had episodes of vomiting usually related to meals. Counseled with Dr. Griffin, oncologist, at this point in time will hold the osimertinib for 1 week to see if improved, then will restart either at 80 or 40. Patient has had weight loss went from 127 down to 118 because of the persistent nausea and decreased intake. She reports she has been able to keep hydrated. She is complaining of some burning with urination, urine specimen clear but dark. Denies dizziness, but will push fluids. Patient's other complaint is she is reporting she has irregular periods of heart rate, reports it happens several times a day, no chest pain with this, nor does it stay persistent. She has not had this previously, over the last few weeks. Patient does report pain is fairly well controlled, we did try to trial back on the MS Contin, but with increase in pain. She does note her pain is still 4 out of 10, reports she is having some increased pain on her left hip area, if remains persistent may need to revisit radiation again. Her bowels are currently moving, with the addition of the metoclopramide. She has having intermittent tremors, but these often align with nausea and vomiting episodes. She denies increased shortness of breath, she does have decreased breath sounds in her right lower lobes. She reports her biggest quality of life issue is her nausea at this point in time, is feeling quite anxious regarding this, as she does not feel like she can continue with this treatment if this persists. Social History - Living Situation Living arrangement: At home Living Situation: With spouse/s.o. Support System: Patient lives with her lobo Beck, they have 2 big dogs in a lobo home. 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 They have been fairly isolated, particularly in the context of Covid, have minimal family/community support. Medications/Allergies - Medications Home Medications: Ambulatory Orders Medication Instructions Recorded Confirmed Naloxone HCl Nasal [Narcan] 1 spray [place] DAILY PRN 11/10/21 02/09/22 Oxycodone HCl 20 mg PO Q3HR PRN 11/10/21 02/09/22 Senna [Senokot] 4 tab PO TID PRN 11/10/21 02/09/22 ondansetron HCL [Zofran] 4 mg PO Q6HR PRN 11/10/21 02/09/22 Pregabalin [Lyrica] 50 mg PO TID 11/23/21 02/09/22 Spironolactone [Aldactone] 12.5 mg PO DAILY 11/25/21 02/09/22 Morphine ER 60 mg PO TID 12/29/21 02/09/22 Rivaroxaban [Xarelto] 20 mg PO DAILY 12/29/21 02/09/22 Metoclopramide [Reglan] 5 mg PO TID PRN 01/19/22 02/09/22 Osimertinib Mesylate [Tagrisso] 80 mg PO DAILY MDD HOLD 02/09/22 02/09/22 dexAMETHasone [Decadron] 2 mg PO DAILY 02/09/22 02/09/22 - Allergies Allergies/Adverse Reactions: Allergies Allergy/AdvReac Type Severity Reaction Status Date / Time Sulfa (Sulfonamide Allergy Unknown Verified 12/29/21 15:25 Antibiotics) Review of Systems - Constitutional Constitutional: reports: Fatigue (impacted by nausea), Weakness, Weight loss (has lost about 9 pounds over last month) - Eyes Eyes: reports: Vision loss, Corrective lenses - Ears, Nose & Throat Ears, Nose & Throat: reports: Tinnitus, Dry mouth, Other (taste changes). denies: Mouth lesions - Cardiovascular Cardiovascular: reports: Edema (almost resolved), Decr. exercise tolerance (now able to do household tasks; starting on treadmill; not needing walker) - Respiratory Respiratory: reports: SOB with exertion. denies: SOB at rest - Gastrointestinal Gastrointestinal: reports: Constipation ( currently on 4 senna 3 times daily; mag oxide 400 mg; simethicone), Nausea (see HPI), Vomiting (up to two times a day), Early satiety (eating small frequent feedings). denies: Reflux/heartburn - Genitourinary Genitourinary: reports: Dysuria. denies: Frequency, Urgency, Hematuria - Musculoskeletal Musculoskeletal: reports: Muscle pain, Back pain, Muscle aches, Stiffness, Limited range of motion, Muscle weakness - Integumentary Integumentary: reports: Dryness, Hair changes (alopecia; has cute wig on today) - Neurological Neurological: reports: General weakness, Numbness, Abnormal gait - Psychiatric Psychiatric: reports: Anxiety (wore with persistent nausea) - Endocrine Endocrine: reports: Intolerance to cold - Hematologic/Lymphatic Hematologic/Lymph: reports: Blood clots (new PE; xarelto no s/s travon bleeding) - All Other Systems All Other Systems: reports: Reviewed and negative Physical Exam - Vital Signs Temperature: 97.7 C Pulse Rate: 71 Respiratory Rate: 18 O2 Saturation: 95 (on room air @ rest) Blood Pressure: 131/69 - Physical Exam General Appearance: positive: No acute distress, Alert, Cachetic Eyes Bilateral: positive: Normal inspection ENT: positive: Other (coating on tongue; no white patches buccally) Neck: positive: Trachea midline Cardiovascular: positive: Regular rate & rhythm Respiratory: positive: No respiratory distress, Breath sounds nml, Diminished in bases, Other (hypoxia resolved; will keep oxygen for the short term until after next appt;). negative: Wheezes, Rales, Rhonchi Abdomen: positive: Soft, Distended (mild) Skin: positive: Pallor, Dryness Extremities: negative: Pedal edema Neurologic/Psychiatric: positive: Oriented x3, Mood/affect nml, Weakness (improved; gait steady) Palliative Care - POLST Patient has POLST: Yes POLST Status: DNR, Selective Treatment Pain: Pain unchanged, Location (left hip/rib area worse; baseline pain controlled), Severity (4/10) Tiredness/Fatigue: Moderate (4-6) Drowsiness/Sedation: Mild (1-3) Nausea: Severe (7-10), With vomiting Anorexia: Moderate (4-6) Dyspnea: Mild (1-3) Depression: Mild (1-3) Anxiety: Mild (1-3) Feelings of wellbeing/Perceived Quality of Life: Fair, Worsening (with nausea; had improved) Sleep: Sleeps well Constipation: Yes, Opoid induced, Managed Performance Status: Functional status had improved, but now limited by her feelings of nausea and not wanting to trigger vomiting. She has been able to do household tasks, but is much more sedentary is feeling somewhat distressed that she cannot get out and do her gardening. She can ambulate better now without a walker. - Palliative Care Discussion: Patient quality of life is been impacted with her higher symptom burden with nausea and vomiting. Unfortunately this means she is not been able to do the things that are most important to her currently, she is feeling somewhat overwhelmed. She does understand the seriousness of her illness, has initiated conversations regarding end-of-life planning and does have a POLST. We will continue to follow, introduced resources as needed, and goal to have improved quality of life. Will hold current treatment regimen, as it is impacting, patient with verbalized concerns regarding impact on her treatment plan, reassured short break will not impact overall outcomes. Results - Lab Results Lab results reviewed: Yes Impression and Recommendations - Palliative Care Impression: This is a lobo 71-year-old woman with metastatic lung cancer with mets to the bone and liver. She currently has been experiencing persistent nausea and now progression to vomiting 1-2 times a day. She has had significant weight loss of 9 pounds over the last few weeks as a result. Patient's pain is controlled, though now has a new area of her left hip, will monitor may benefit from another round of radiation. Patient's constipation has been improved with addition of metoclopramide. At this point time after much realignment of antiemetics, will hold her osimertinib and monitor response. Palliative care continue to see patient for pain and symptom management, coordination of care, and anticipatory guidance Recommendations/Counseling Done: 1. Pain of neoplastic origin. This is multifactorial, including visceral, bone pain, mediastinal mets but is currently controlled with MS Contin 60 mg 3 times daily, does have a new area of pain in her left hip/thoracic area, will monitor may benefit from revisiting radiation oncology. Patient on pregabalin 50 mg 3 times a day, has increased dexamethasone back to 2 mg. We will continue to monitor, with goal to find balance of sedation, fatigue and pain relief. 2. Constipation. Patient did discontinue MiraLAX, has senna 4 tabs 3 times a day, mag citrate 400 mg daily for support, and did respond well to the initiation of metoclopramide 5 mg 3 times daily. 3. Nausea and vomiting. Have trialed multiple different regimens, at this point in time, will hold the osimertinib, to see if this is adding to her nausea for 1 week. Oncologist will either restart after break, or restart at lower dosing. Patient without any lab abnormalities to add to the concern regarding this. Have increase the dexamethasone to 2 mg also, will evaluate response. 4. Lower extremity edema. Patient's kidney function continues look good, her spironolactone is 12.5 mg, she has minimal to little swelling and is using compression stockings with good response. 5. Weight loss. This is multifactorial, patient has experienced anorexia, most impacted by her nausea. Have encouraged use of [place] [employer] Breakfast, small frequent meals, and [id number] ondansetron. Patient with high an xiety regarding intermittent vomiting, will continue to monitor. 6. Advanced care planning. Patient is somewhat discouraged with her current symptom burden, and worsening quality of life. She has been improving, and was hoping to able to do some short trips and things that made her life more joyful including her guarding. We will continue to work with symptom burden, hoping to return to previous level of functioning. 7. Palpitations. Patient is on high risk drug, will be off for a week, if these decrease, may need to follow-up with EKG, consult with oncology, will continue to monitor. 8. Dysuria. Patient provided urine, at this point not frankly positive, patient complains of burning with urination, suspect given patient's use of dexamethasone and no frequency urgency, vaginal infection. We will go ahead and treat with Diflucan 100 mg, and repeat if necessary. 60 minutes Review of labs, oncology notes, coordination of care with oncology team. [id number] for counseling for pain and symptom management, follow-up on nausea and vomiting, anticipatory guidance, and psychosocial support
== END 2022-02-09 08:31 | disposition home or self-care (01) ==
LOC: PC 08:30
PROVIDERS: ATTEND Nurse Practitioner Adult Health
DX: Z51.5 Encounter for palliative care (principal); G89.3 Neoplasm related pain (acute) (chronic); R11.2 Nausea with vomiting, unspecified; R63.0 Anorexia; R63.4 Abnormal weight loss; R53.83 Other fatigue; R53.1 Weakness; K59.03 Drug induced constipation; T40.2X5A Adverse effect of other opioids, initial encounter; R06.02 Shortness of breath; R60.0 Localized edema; C78.7 Secondary malignant neoplasm of liver and intrahepatic bile duct; C79.51 Secondary malignant neoplasm of bone; C34.90 Malignant neoplasm of unspecified part of unspecified bronchus or lung; Z79.891 Long term (current) use of opiate analgesic; Z79.899 Other long term (current) drug therapy; Z79.52 Long term (current) use of systemic steroids; Z66 Do not resuscitate
CPT/HCPCS: 99354

== ENCOUNTER 2022-02-23 09:34 | Outpatient (CLI) | payer MEDICARE, OTHER ==
--- NOTE | 2022-02-23 13:16 | CONSULTATION NOTE ---
Palliative Care Follow Up - Referral Referring Provider: Cat Griggs PA-C Time of Visit: 0940 45 min Referral setting: [facility] [place] Referral Reason: Pain of neoplastic origin/Anxiety/Met Lung CA bones/liver - Information Sources Records reviewed: Previous records reviewed History/Review of Systems obtained from: Patient, Family ( Beck present) Exam limitations: No limitations - History of Present Illness Update Brief HPI Update: This is a lobo 71-year-old woman with metastatic lung cancer with known multiple bony and hepatic mets. She is currently on a cemetery neb initiated 01/04/2022, it is currently been on hold for a week with resolution of nausea.He restarted last week, has not had any recurrent nausea, continues to do well, as well as a good clinical response. No exacerbation of pain, shortness of breath, recurrent nausea or vomiting. She continues on the dexamethasone 2 mg daily, will continue this until pass another week or 2 in the context of not changing the variables. Suspect had been a buildup of toxicity, is hoping that stopping and restarting will deal with this. Patient's pain is managed currently on 60 mg 3 times daily, with pregabalin 50 mg 3 times daily no need for use of breakthrough pain medication. She does have her bowels moving on her current regimen which includes senna and metoclopramide. She is doing well with her weight, and her symptom burden has improved dramatically. She is quite pleased with the outcome, is hoping to plan for vacation/trip in the near future. She has had less to resolution of the palpation she was experiencing. Her only new symptom is some left numbness and difficulty with fine motor movements on her outside 3 fingers and thumb, fol lowing dermatome of C8. Suspect this is nerve compression. Social History - Living Situation Living arrangement: At home Living Situation: With spouse/s.o. Support System: Patient lives with her lobo Beck, they have 2 big dogs and a very nice home with a lobo garden she has a master garden. 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 She does better with concrete information as well as hoping for the best, but is pragmatic as well. They have been fairly isolated particularly context of Covid, will continue to explore avenues of support. Medications/Allergies - Medications Home Medications: Ambulatory Orders Medication Instructions Recorded Confirmed Naloxone HCl Nasal [Narcan] 1 spray [place] DAILY PRN 12/15/21 03/30/22 Oxycodone HCl 20 mg PO Q3HR PRN 11/10/21 02/23/22 Senna [Senokot] 4 tab PO TID PRN 11/10/21 02/23/22 ondansetron HCL [Zofran] 4 mg PO Q6HR PRN 11/10/21 02/23/22 Pregabalin [Lyrica] 50 mg PO TID 11/23/21 02/23/22 Morphine ER 60 mg PO TID 12/29/21 02/23/22 Rivaroxaban [Xarelto] 20 mg PO DAILY 12/29/21 02/23/22 Metoclopramide [Reglan] 5 mg PO TID PRN 01/19/22 02/23/22 Osimertinib Mesylate [Tagrisso] 80 mg PO DAILY MDD restarted 02/1602/09/22 02/23/22 dexAMETHasone [Decadron] 2 mg PO DAILY 02/09/22 02/23/22 - Allergies Allergies/Adverse Reactions: Allergies Allergy/AdvReac Type Severity Reaction Status Date / Time Sulfa (Sulfonamide Allergy Unknown Verified 12/29/21 15:25 Antibiotics) Review of Systems - Constitutional Constitutional: reports: Fatigue, Weakness (improved), Weight stable (120) - Eyes Eyes: reports: Vision loss, Corrective lenses - Ears, Nose & Throat Ears, Nose & Throat: reports: Tinnitus, Dry mouth. denies: Mouth lesions - Cardiovascular Cardiovascular: reports: Decr. exercise tolerance (now able to do household tasks; starting on treadmill; not needing walker). denies: Edema (wearing support hose) - Respiratory Respiratory: reports: SOB with exertion, Other (has not needed oxygen, will send order to return). denies: SOB at rest - Gastrointestinal Gastrointestinal: reports: Bloating (intermittent), Early satiety. denies: Constipation (controlled on current regimen), Nausea (resolved and doing well one week in on ositermib) - Musculoskeletal Musculoskeletal: reports: Muscle pain, Back pain, Muscle aches, Stiffness, Limited range of motion, Muscle weakness - Integumentary Integumentary: reports: Dryness, Hair changes (alopecia; has cute wig on today!) - Neurological Neurological: reports: General weakness, Numbness (left three finger/thumb fine motor affected), Abnormal gait - Psychiatric Psychiatric: reports: Anxiety (improved with lower symptom burden) - Endocrine Endocrine: reports: Intolerance to cold - Hematologic/Lymphatic Hematologic/Lymph: reports: Blood clots (new PE; xarelto no s/s travon bleeding) - All Other Systems All Other Systems: reports: Reviewed and negative Physical Exam - Vital Signs Pulse Rate: 62 Respiratory Rate: 16 O2 Saturation: 95 Blood Pressure: 103/52 - Physical Exam General Appearance: positive: No acute distress Eyes Bilateral: positive: Normal inspection, No scleral icterus ENT: positive: No signs of dehydration Neck: positive: Trachea midline Cardiovascular: positive: Regular rate & rhythm Respiratory: positive: No respiratory distress, Breath sounds nml, Diminished in bases Abdomen: positive: Soft Skin: positive: Pallor, Dryness Extremities: positive: No pedal edema Neurologic/Psychiatric: positive: Oriented x3, Mood/affect nml Palliative Care - POLST Patient has POLST: Yes POLST Status: DNR, Selective Treatment Pain: Pain improved, Severity (0/10), Comment (currently controlled on regimen; no changes) Tiredness/Fatigue: Mild (1-3) Drowsiness/Sedation: Mild (1-3) Nausea: None Anorexia: None Dyspnea: None Depression: None Anxiety: None Feelings of wellbeing/Perceived Quality of Life: Excellent, Acceptable, Improved Sleep: Sleeps well Constipation: Yes, Opoid induced, Managed Performance Status: Continues to have improved functional status, is ambulatory, managing her ADLs. She is doing some household tasks, she remains frustrated she is not back to her previous level of functioning but has improved dramatically from her low point. - Palliative Care Discussion: Patient does understand the seriousness of her illness, continues to grapple with impending decline. Encouraged to reframe and set a goal, would like to take a trip in [place]. Discussed would recommend planning for it, at this point if she has recurrent nausea, we know that stopping the meds resolve this. Her pain is controlled, her symptom modem is low, she most likely be able to tolerate this with little impact. Hopefully have convinced her to move forward on this. Results - Lab Results Lab results reviewed: Yes Impression and Recommendations - Palliative Care Impression: This is a lobo 71-year-old woman with metastatic lung cancer with mets to bone and liver. She did respond to stopping and restarting her oseltamivir. She has had no nausea though remains anxious this may recur. Patient's pain is well controlled, constipation is improved, she is continuing to regain strength though not to her previous level of functioning. Palliative care continue to see patient for pain and symptom management, coordination of care and anticipatory guidance. Recommendations/Counseling Done: 1. Pain of neoplastic origin. This is multifactorial, including visceral, bone pain mediastinal mets but is currently controlled with MS Contin 60 mg 3 times daily, has done better with the dexamethasone and the pain continues to improve. She is having a great clinical response, will continue to monitor, may be able to trial again decreasing MS Contin. 2. Constipation. Patient is doing senna, mag citrate as well as metoclopramide with good response. 3. Nausea and vomiting. Patient has not had recurrence of this, will continue to monitor. 4. Lower extremity edema. Patient has had resolution of this, we will go ahead and discontinue her spironolactone which is 12.5 mg. She does have intermittent bloating, but I suspect this is more GI related. 5. Weight loss. This is multifactorial, patient does experience anorexia most recently impacted by her nausea. She is continuing to work with protein shakes, small frequent meals and around not needing any nausea at this point time. We will continue to monitor encouraged with weight gain. 6. Palpitations. Patient on high risk drug,Was off for a week with resolution of symptoms. Counseling provided regarding reporting if recurs or becomes persistent or problematic. May need to have a follow-up EKG, will continue to consult with oncology and monitor. 7. Dysuria. Patient did respond to Diflucan 100 mg, most likely as result of persistent steroid use. We will go ahead and monitor for further recurrence. Currently resolved. A. Advnce care planning. Patient symptom burden has improved, is feeling much more positive. Does appear to be having a good clinical response, is due for scans again in March. Recommended continue to plan for vacation, focusing on quality of life and things that are more life affirming in the midst of serious illness. 45 minutes review of labs, oncology notes, will send order for [employer] to pick remover oxygen, coordination of care with oncology team, continued pain and symptom management and anticipatory guidance.
== END 2022-02-23 09:35 | disposition home or self-care (01) ==
LOC: PC 09:34
PROVIDERS: ATTEND Nurse Practitioner Adult Health
DX: Z51.5 Encounter for palliative care (principal); C34.90 Malignant neoplasm of unspecified part of unspecified bronchus or lung; G89.3 Neoplasm related pain (acute) (chronic); C78.7 Secondary malignant neoplasm of liver and intrahepatic bile duct; C79.51 Secondary malignant neoplasm of bone; K59.03 Drug induced constipation; T40.2X5A Adverse effect of other opioids, initial encounter; R63.4 Abnormal weight loss; R00.2 Palpitations; Z66 Do not resuscitate
CPT/HCPCS: 99215

== ENCOUNTER 2022-04-07 12:30 | Outpatient (CLI) | payer MEDICARE, OTHER ==
--- NOTE | 2022-04-07 16:47 | CONSULTATION NOTE ---
Palliative Care Follow Up - Referral Referring Provider: Cat Griggs PA-C Time of Visit: 6400-3259 Referral setting: Home Referral Reason: Pain of neoplastic origin/Met Lung CA/Bone mets/Constipation - Information Sources Records reviewed: Previous records reviewed History/Review of Systems obtained from: Patient, Family ( Beck) Exam limitations: No limitations - History of Present Illness Update Brief HPI Update: This is a lobo 71 old woman with metastatic lung cancer with known multiple bony mets and mets to the liver. She is currently on osimertinib and has continued with good clinical response and recent scans were positive. Her pain is fairly well controlled, continues to struggle with constipation, had stopped the metoclopramide in hopes to rule out if experiencing side effects as was having some stiffness in her thumbs and fine motor movement difficulties, these did not improve with discontinuation. Patient was able to go on her trip, this did involve to being more sedentary, feet dependent, and notable increased trouble with walking on her righ side. Patient felt she may have pulled a muscle, as it has improved since home for last week. She is experiencing some increased pain and sharp shooting down her left hip and thigh, this worsened with decreasing the dexamethasone, making it suspicious for nerve compression. Patient's report of MRI scans show extensive osseous mets, multiple chronic compression fractures are seen in thoracic and lumbar spine as well as cervical thoracic spine but did not show vertebral body collapse or pathologic fracture in this area. It did show degenerative changes in the cervical spine. Patient continues to struggle with constipation, she is fairly maxed out on senna at 4 tabs 3 times a day, and stopping the medical proglumide reinitiated MiraLAX 17 g twice daily, and has had to use intermittent milk of magnesia. It does present with significant pill burden, and patient still has feelings of fullness but is going small amounts daily except for the last few days. Patient has had chronic constipation most of her life, but has been exacerbated by opioid use. Will trial and see if can order Relistor oral, patient is not interested in subcu injections. This would decrease pill burden significantly and possibly improve her underlying problem. Social History - Living Situation Living arrangement: At home Living Situation: With spouse/s.o. 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 She does well with concrete information, hoping for the best but is quite pragmatic. They are fairly isolated, with minimal community support. Their goal is to take frequent small trips, and enjoy the time that she is currently doing well. Medications/Allergies - Medications Home Medications: Ambulatory Orders Medication Instructions Recorded Confirmed Naloxone HCl Nasal [Narcan] 1 spray [place] DAILY PRN 11/10/21 04/08/22 Oxycodone HCl 20 mg PO Q3HR PRN 11/10/21 04/08/22 Senna [Senokot] 4 tab PO TID 11/10/21 04/08/22 ondansetron HCL [Zofran] 4 mg PO Q6HR PRN 11/10/21 04/08/22 Pregabalin [Lyrica] 50 mg PO TID 11/23/21 04/08/22 Morphine ER 60 mg PO TID MDD decreasing 12/29/21 04/08/22 evening dose 30mg Rivaroxaban [Xarelto] 20 mg PO DAILY 12/29/21 04/08/22 Osimertinib Mesylate [Tagrisso] 80 mg PO DAILY 02/09/22 04/08/22 dexAMETHasone [Decadron] 1.5 mg PO DAILY 02/09/22 04/08/22 polyethylene glycoL 3350 [Miralax] 17 gm PO BID 04/08/22 04/08/22 - Allergies Allergies/Adverse Reactions: Allergies Allergy/AdvReac Type Severity Reaction Status Date / Time Sulfa (Sulfonamide Allergy Unknown Verified 12/29/21 15:25 Antibiotics) Review of Systems - Constitutional Constitutional: reports: Weight stable (120) - Eyes Eyes: reports: Vision loss, Corrective lenses - Ears, Nose & Throat Ears, Nose & Throat: reports: Dry mouth - Cardiovascular Cardiovascular: reports: Edema (had increased on trip with LE dependence; re solved to trace in ankles; had restarted diuretic, inst. to stop), Decr. exercise tolerance - Respiratory Respiratory: reports: Other (would like to send oxygen back). denies: Cough, SOB at rest - Gastrointestinal Gastrointestinal: reports: Constipation (cont to struggle; needing to add MOM or mag citrate every few days), Bloating, Early satiety. denies: Nausea, Reflux/heartburn - Musculoskeletal Musculoskeletal: reports: Muscle pain, Back pain, Muscle aches, Stiffness, Limited range of motion, Muscle weakness, Assistive devices (uses walking pole for right sided weakness) - Integumentary Integumentary: reports: Dryness, Hair changes (alopecia; has cute wig on today!) - Neurological Neurological: reports: General weakness, Numbness (left three finger/thumb fine motor affected and right with less), Abnormal gait - Psychiatric Psychiatric: reports: Anxiety - Endocrine Endocrine: reports: Intolerance to cold - Hematologic/Lymphatic Hematologic/Lymph: reports: Blood clots (new PE; xarelto no s/s travon bleeding) - All Other Systems All Other Systems: reports: Reviewed and negative Physical Exam - Vital Signs Temperature: 97.1 C Pulse Rate: 79 Respiratory Rate: 16 O2 Saturation: 98 Blood Pressure: 118/64 - Physical Exam General Appearance: positive: No acute distress, Alert, Cachetic Eyes Bilateral: positive: Normal inspection ENT: positive: No signs of dehydration Neck: positive: Trachea midline Cardiovascular: positive: Regular rate & rhythm Respiratory: positive: No respiratory distress, Breath sounds nml, Diminished in bases, Other Abdomen: positive: Soft Skin: positive: Dryness Extremities: positive: Other (gait with some disturbance when initiates; even after few steps; noted discomfort with weightbearing and walking). negative: Pedal edema (trace ankles only) Neurologic/Psychiatric: positive: Oriented x3, Mood/affect nml, Weakness Palliative Care - POLST Patient has POLST: Yes POLST Status: DNR, Selective Treatment Pain: Comment (pain with fluctuating nature; new on right / muscular; increased left with sharp shooting concern for nerve compression; current regimen MS contin 60 mg TID; pregablin 50 mg TID; dex 1.5 mg daily) Tiredness/Fatigue: Mild (1-3) Drowsiness/Sedation: None Nausea: None Anorexia: Moderate (4-6) Dyspnea: Mild (1-3) Depression: None Anxiety: Moderate (4-6) Feelings of wellbeing/Perceived Quality of Life: Good, Acceptable, Improved Sleep: Sleeps well Constipation: Yes, Opoid induced, Unmanaged, Intermittent constipation Performance Status: Continues to have improved functional status, is ambulatory to manage her ADLs. She has had a setback with her increased right leg pain but this is improving. She is able to ambulate short distances but notes increased pain, concern regarding more compression from fractures. She was able to travel, and is hopeful to continue her independence. She expresses appropriate concern about more functional decline in the future. - Palliative Care Discussion: Patient continues to express concerns about the future, though she is doing fairly well compared to her baseline previously. She is hopeful to continue to be able to take weekend trips, and remain independent and functional as long as possible. Patient with appropriate anxiety regarding continued concerns around her spine and compression fractures. Patient actually in fairly good spirits, reflected on trip though with some disappointment still was able to get away. Encouraged to continue to set goals for small trips in future, hoping for the best. Addressed patient's questions and concerns regarding the continuum, and providing psychosocial support and presence. Results - Lab Results Lab results reviewed: Yes Impression and Recommendations - Palliative Care Impression: This is a lobo 71-year-old woman with metastatic lung cancer with mets to bone and liver. She is doing well on her osimertinib, with no recurrence of nausea. Unfortunately since still having issues with constipation, will see if insurance will cover Relistor. Patient's pain is fairly well controlled, though still has some intermittent neuropathic pain that fluctuates that is a concern for nerve compression. Patient is doing well with her current level of functioning. Palliative care continue to see patient for pain and symptom management, coordination of care and anticipatory guidance Recommendations/Counseling Done: 1. Pain of neoplastic origin. This is multifactorial, including visceral, bone pain, mediastinal mets but is currently controlled with MS Contin 60 mg 3 times daily, pregabalin 50 mg 3 times daily, she does appear to have a clinical response. We will trial decreasing MS Contin to 30 mg at bedtime. She will continue on 60 mg a.m. and afternoon. Patient also has neuropathic pain, suspect related to compression from chronic compression fractures and/or bony mets. She has sharp shooting pains that fluctuate but are worsening on the left hip and thigh area. Of note does improve with dexamethasone, worsens as we tired and titrate back. Can increase pregabalin if needed, will reach out to oncologist, for looking out following up with radiation oncology to see if there is any other lesions that may be targeted to improve symptoms. 2. Spasticity of bilateral thumbs, left greater than right. This did not improve off the metoclopramide, and continues to fluctuate. Patient does have cervicothoracic lumbar mets, they be due to compression. We will continue to monitor as well as follow up with radiation oncology. 3. Opioid-induced constipation. We did stop the metoclopramide, unfortunately this was an effective intervention for her. Given the side effects and concerns, will continue off unless needed. She is fairly maxed out on her constipation regimen, senna 4 tabs 3 times daily, and had reinitiated MiraLAX 17 g twice daily. She is still needing intermittent magnesium, milk of mag and mag citrate. She does get a feeling of bloating. Did order Relistor 450 mg every morning. Instructions provided regarding if insurance approves, will start a.m. before first meal. To stop senna and MiraLAX, and add those back in as needed.She is interested in giving it a trial run. 4. Lower extremity edema. The patient had resolution of this prior, reports had recurred with traveling. She does admit legs are mostly dependent. When she returned home this is continue to improve, instructed to stop spironolactone again. 5. Anorexia. This is multifactorial, continues to work with small frequent meals, has not had any recurrent nausea at this point. Patient is maintaining. 6. Advance care planning. Patient continues to have anxiety and concerns regarding the future, this is appropriate given the severity of her illness. She continues to do well clinically, encouraged to stay as active as possible as well as continue to plan short-term goals, will continue provide support and anticipatory guidance, with hoping for the best. Patient's long-term plan would to be to remain at home for end-of-life, but will need increased caregiving support. Currently doing quite well, reassurance provided. 60 minutes with greater than 50% of this done in counseling regarding pain and symptom management, constipation, coordination of care with oncology, and anticipatory guidance.
== END 2022-04-07 12:31 | disposition home or self-care (01) ==
LOC: PC 12:30
PROVIDERS: ATTEND Nurse Practitioner Adult Health
DX: Z51.5 Encounter for palliative care (principal); G89.3 Neoplasm related pain (acute) (chronic); K59.03 Drug induced constipation; T40.2X5A Adverse effect of other opioids, initial encounter; C79.51 Secondary malignant neoplasm of bone; C78.7 Secondary malignant neoplasm of liver and intrahepatic bile duct; Z79.899 Other long term (current) drug therapy; Z79.891 Long term (current) use of opiate analgesic; Z79.01 Long term (current) use of anticoagulants; Z79.52 Long term (current) use of systemic steroids; Z66 Do not resuscitate; R63.0 Anorexia; R60.0 Localized edema; R26.2 Difficulty in walking, not elsewhere classified; Z60.8 Other problems related to social environment; R25.2 Cramp and spasm
CPT/HCPCS: 99350

== ENCOUNTER 2022-05-23 11:18 | Outpatient (CLI) | payer MEDICARE, OTHER ==
--- NOTE | 2022-05-23 11:58 | XRAY Report ---
PROCEDURE: Pelvis 1 View INDICATIONS: WORSENING LEG PAIN/HIP PAIN BONE METS CONCERN FOR COMPOUND FRACTURE TECHNIQUE: 1 view(s) of the pelvis acquired. COMPARISON: None. FINDINGS: Bones: No fractures or dislocations. No suspicious bony lesions. Mottled appearance of osseous str uctures in the axial and appendicular skeleton, as previously identified. Soft tissues: Visualized bowel gas pattern is normal. No suspicious soft tissue calcifications. IMPRESSION: Osseous metastatic disease, unchanged from prior exam. No visualized acute fracture or dislocation. However, occult injury cannot be excluded. Recommend romulo rt interval imaging follow-up in 7-10 days as clinically indicated for additional evaluation. Reviewed by: Carly Pierre MD on 05/23/2022 11:56 AM PDT Approved by: Carly Pierre MD on 05/23/2022 11:56 AM PDT Station ID: [id number]
--- NOTE | 2022-05-23 12:01 | XRAY Report ---
PROCEDURE: Lumbar Spine 2 View INDICATIONS: WORSENING LEG PAIN/HIP PAIN BONE METS CONCERN FOR COMPOUND FRACTURE TECHNIQUE: 3 views of the lumbar spine were acquired. COMPARISON: None. FINDINGS: Bones: 5 [id number] vertebrae are present. There is normal bony alignment. No new vertebral b dominique compression fractures. T11 through the level of T10-T12 compression deformities are unchanged. There is a slight superior en dplate deformity at L1 also unchanged. Multilevel degenerative changes are present most severe at L5- S1. Mottled appearance of the axial and appendicular skeleton is present consistent with known metast atic disease Soft tissues: Overlying bowel gas pattern is normal. No suspicious soft tissue calcifications. IMPRESSION: Unchanged compression deformities from T10 through T12. There is overall appearance of known osseous metastatic disease. Reviewed by: Carly Pierre MD on 05/23/2022 11:59 AM PDT Approved by: Carly Pierre MD on 05/23/2022 11:59 AM PDT Station ID: [id number]
== END 2022-05-23 11:19 | disposition home or self-care (01) ==
LOC: DI 11:18
PROVIDERS: ATTEND Nurse Practitioner Adult Health
DX: C79.51 Secondary malignant neoplasm of bone (principal); M48.54XD Collapsed vertebra, not elsewhere classified, thoracic region, subsequent encounter for fracture with routine healing

== ENCOUNTER 2022-06-09 09:39 | Emergency (ER) | payer MEDICARE, OTHER ==
--- NOTE | 2022-06-09 10:04 | ED Physician Documentation ---
PD HPI BACK PAIN - Stated complaint Stated Complaint: PX IN LEG - Chief complaint Chief Complaint: Ext Problem - History obtained from History obtained from: Patient, EMS - History of Present Illness Timing - onset: Today, Last night Timing - details: Abrupt onset (Patient with a history of chronic back pain from compression fractures and bone metastases from lung cancer. Had abrupt severe pain in the lower back with standing up last night and still hurting a lot this morning. Worse pain than usual by far.), Waxing and waning (Hurts with rest but significant pain with attempted weightbearing particularly the right leg.) Location: Lower, Right Quality: Pain, Sharp Associated symptoms: Numbness (Feeling of some numbness onto the anterior thigh on the right leg.). No: Fever, Weakness, Incontinent of urine Improves with: Rest. No: Meds Worsened by: Movement, Other (weight bearing) Contributing factors: No: Lifting, Twisting, Trauma Similar symptoms before: Diagnosis (prior compression fractures spine. This hurts more.) Review of Systems Constitutional: denies: Fever, Chills Nose: denies: Rhinorrhea / runny nose, Congestion Throat: denies: Sore throat Cardiac: denies: Chest pain / pressure Respiratory: denies: Cough GI: denies: Abdominal Pain Skin: denies: Rash, Lesions Musculoskeletal: reports: Back pain Neurologic: denies: Focal weakness PD PAST MEDICAL HISTORY - Past Medical History Cardiovascular: None Respiratory: Other (Lung CA with bone mets to spine and other multiple mets. 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 : None HEENT: Chronic vision loss Psych: None Musculoskeletal: Other (Chronic pain especially spinal pain for which she needs high doses of opiate) Derm: Other - Past Surgical History Past Surgical History: Yes General: Colonoscopy, Other Derm: Skin cancer surgery - Present Medications Home Medications: Ambulatory Orders Medication Instructions Recorded Confirmed Senna [Senokot] 4 tab PO TID 11/10/21 06/03/22 ondansetron HCL [Zofran] 4 mg PO Q6HR PRN 11/10/21 06/03/22 Pregabalin [Lyrica] 50 mg PO TID 11/23/21 06/03/22 Morphine ER 60 mg PO 0500,1400,2200 12/29/21 06/04/22 Rivaroxaban [Xarelto] 20 mg PO DAILY 12/29/21 06/03/22 dexAMETHasone [Decadron] 2 mg PO DAILY 02/09/22 06/03/22 Metoclopramide [Reglan] 5 mg PO TID PRN 06/03/22 06/03/22 Morphine ER [Morphine Sulfate ER] 30 mg PO 0500 06/03/22 06/04/22 Omeprazole Magnesium 20 mg PO DAILY 06/03/22 06/03/22 L. Acidophilus/Pectin, [place] 1 each PO DAILY #5 tablet 06/07/22 [Acidophilus-Pectin [place]] Methylnaltrexone [place] [Relistor] 150 mg PO DAILY #0 06/07/22 06/06/22 cefUROXime axetiL [Ceftin] 500 mg PO BID #10 tablet 06/07/22 Methylnaltrexone [place] [Relistor] 1 tab PO DAILY 06/09/22 06/09/22 Osimertinib Mesylate [Tagrisso] 80 mg PO DAILY 06/09/22 06/09/22 Oxycodone HCl 20 mg PO PRN 06/09/22 - Allergies Allergies/Adverse Reactions: Allergies Allergy/AdvReac Type Severity Reaction Status Date / Time Sulfa (Sulfonamide Allergy Unknown Verified 06/09/22 09:49 Antibiotics) - Social History Does the pt smoke?: No Smoking Status: Never smoker Does the pt drink ETOH?: No Does the pt have substance abuse?: Yes - Immunizations Immunizations are current?: Yes - POLST Patient has POLST: Yes POLST Status: DNR PD ED PE NORMAL - Vitals Vital signs reviewed: Yes - General General: Alert and oriented X 3, Well developed/nourished, Other (appears in pain) - Cardiac Cardiac: RRR, No murmur - Respiratory Respiratory: Clear bilaterally - Abdomen Abdomen: Soft, Non tender, Non distended. No: Normal bowel sounds (decreased) - Female Female : Deferred - Rectal Rectal: Deferred - Back Back: No CVA TTP, Other (tenderness in sacral/SI area more to right than left. Not tender in lumbar per se. No pain at right hip with impaction nor rotation. ) - Derm Derm: Normal color, Warm and dry - Extremities Extremities: No edema, No calf tenderness / cord - Neuro Neuro: Alert and oriented X 3, No motor deficit, No sensory deficit, Normal speech, Other (2+ patellar reflexes. ) Results - Vitals Vitals: Vital Signs - 24 hr 06/09/22 06/09/22 06/09/22 09:40 11:49 13:00 Temperature 36.9 C Heart Rate 111 H 85 90 Respiratory 16 22 18 Rate Blood Pressure 134/80 H 107/68 113/75 O2 Saturation 94 94 97 06/09/22 14:50 Temperature Heart Rate 89 Respiratory 19 Rate Blood Pressure 110/72 O2 Saturation 93 Oxygen O2 Source Room air - Rads (name of study) lumbar/sacral CT Radiology: Prelim report reviewed (sacral alar fracture new, pathologic. No change in prior T11 and T12 fractures. ), See rad report PD MEDICAL DECISION MAKING - ED course Complexity details: reviewed results (New pathologic fracture at the sacrum. MRI will be needed to evaluate soft tissue at the area to see if radiation therapy would be helpful. MRI was unavailable today. They have an outpatient one scheduled [address] Manning will see if he can expedite.), re- evaluated patient (I wrote prescription orders for wheelchair and bedside commode see if they can get those as durable goods. This will help with less mobility needed in the short-term.I suggested also trying senior services.), considered differential, d/w patient, d/w biometrics consultant (Derrell Manning, advised on finding and he suggests Decadron 4 mg daily (patient has at home) and pain meds per Jessica Ruiz. ) ED course: I talked with Dr. Derrell Manning. He did suggest increasing dexamethasone to 4 mg. Continue with pain medication and defer to Jessica Ruiz for palliative care. He will follow-up with them to try to expedite their MRI and if appropriate radiation therapy. These would be outpatient. No reasoning for admission or transfer. I talked with Jessica Ruiz as well and she will contact the patient to augment the pain medication regimen. In short she should continue with her current morphine dosing of 90/60/60 milligrams through the day and continue the oxycodone 10 mg tablets 1-2 at a time but increase it to every 2-3 hours as needed. 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 Blanchard suggested increasing your dexamethasone to 4 mg daily. His office will contact you for follow-up. I talked with Jessica Ruiz who wanted you to continue your current morphine dosing and increase your oxycodone to every 2 hours as needed for increased pain. You can try to decrease the pain by decreasing the amount of mobility needed in the short-term. Use of bedside commode and wheelchair if needed. It will be hard to medicate enough to not have pain with walking but the goal would to be make it tolerable and not oversedated when rested. Talk with Jessica Ruiz later today. Discharge Date/Time: 06/09/22 14:51
[2022-06-09] MEDS ORDERED: KETOROLAC 15 MG/ML VIAL IVP STA (10:42)
[2022-06-09] MEDS ORDERED: SODIUM CHLORIDE 0.9% 1,000 ML IV STA (10:42)
[2022-06-09] MEDS ORDERED: HYDROmorphone 2 MG/ML VIAL IVP STA (10:42)
--- NOTE | 2022-06-09 12:47 | CT Report ---
PROCEDURE: LUMBAR SPINE WO INDICATIONS: h/o bone mets lung CA, new low back pain today TECHNIQUE: Noncontrast 3 mm thick sections acquired from the T12 level to the sacrum. Sagittal and coronal refo rmats were constructed. For radiation dose reduction, the following was used: automated exposure co ntrol, adjustment of mA and/or kV according to patient size. COMPARISON: CT examination dated 03/22/2022 FINDINGS: Image quality: Excellent. Bones: There is normal bony alignment. There are moderate T11 and T12 compression fractures, as befo re. No acute vertebral body compression fractures. Multiple lytic and sclerotic foci within the visua lized lumbosacral and pelvic osseous structures, as before. There is a new region of bony offset invo lving the left sacral alar, as well as linear lucency traversing the left sacral alar. No pars defect s. Soft tissues: No retroperitoneal masses or hematomas. Visualized aorta is normal in caliber. Small amount of free fluid within the pelvis, as before. Small right pleural effusion, as before. IMPRESSION: 1. Mildly displaced pathologic left sacral fracture. 2. Severe metastatic disease to the lumbosacral spine and pelvis. 3. No change in T11 and T12 compression fractures. 4. No change in small right pleural effusion and small amount of ascites. Reviewed by: Connor Francis MD on 06/09/2022 12:46 PM PDT Approved by: Connor Francis MD on 06/09/2022 12:46 PM PDT Station ID: [id number]
[2022-06-09] MEDS ORDERED: DEXAMETHASONE 10 MG/ML VIAL IVP STA (13:37)
[2022-06-09] MEDS ORDERED: HYDROmorphone 1 MG/ML CARPUJECT IVP STA (13:37)
[2022-06-09] MEDS ORDERED: oxyCODONE 5 MG TABLET PO STA (14:36)
[2022-06-09 14:51] VITALS: BP 110/72
== END 2022-06-09 14:51 | disposition home or self-care (01) ==
LOC: EDUNIT# → ED 09:39
DX: C34.90 Malignant neoplasm of unspecified part of unspecified bronchus or lung (principal); M84.58XA Pathological fracture in neoplastic disease, other specified site, initial encounter for fracture; C79.51 Secondary malignant neoplasm of bone; Z66 Do not resuscitate
CPT/HCPCS: 72131; 96361; 96374; 96375; 99284; A9270; J1170